=== PATIENT | male | born 1930 | race Caucasian/White ===

== ENCOUNTER 2016-09-30 14:47 | Inpatient (IN) | payer OTHER ==
[~2016-09-30] VITALS: Ht 165.1 cm; Wt 81.0 kg
[~2016-09-30 14:47] MED LIST: ALLO100T PO; GLIP-95 PO; GLIP5TAB13 PO; METF1000 PO; OCUVITE PO; PYRI60TA9 PO; SMV40T PO; SYN112 PO
[2016-09-30] MEDS ORDERED: SOD CHLORIDE 0.9% 1,000 ML IV STA (15:53)
--- NOTE | 2016-09-30 15:58 | ERD ---
ER Documentation Chief Complaint Date/Time DATE: 09/30/16 TIME: 15:40 Chief Complaint syncope while in bathroom. no neuro def. question loc. no trauma HPI 86-year-old male with history of diabetes mellitus type 2, metabolic syndrome, hyperlipidemia, hypothyroidism, myasthenia gravis, nephrolithiasis, chronic constipation and chronic back pain and sciatica presents to the ED via rescue ambulance for evaluation of near syncope. He was in his usual state of health until yesterday evening when he began to have frequent, soft stools throughout the night with a queasy feeling but no abdominal pain, nausea or vomiting. Earlier this afternoon he had an episode of explosive diarrhea which recurred again while sitting on the commode became lightheaded. He called out to his who witnessed a near syncopal episode which lasted several seconds and returned to baseline. became concerned and called 911. There was no seizure activity. No urinary or fecal incontinence. He denies chest pain or palpitations. No headache, neck pain or visual changes. Generalized weakness but no Focal weakness or numbness. Denies leg pain or swelling. No fevers or chills. Currently back to baseline. His dinner last night was a pastrami sandwich at [facility] in [place]. His had the same meal but did not become ill. ROS All systems reviewed and are negative except as per history of present illness. Medications Home Meds Reported Medications Pyridostigmine Nimitz* (Mestinon*) 60 Mg Tablet, 120 MG PO BEFORE LUNCH, TAB 10/01/16 Pyridostigmine Nimitz* (Pyridostigmine Nimitz*) 60 Mg Tablet, 60 MG PO QHS, TAB 10/01/16 Pyridostigmine Nimitz* (Pyridostigmine Nimitz*) 60 Mg Tablet, 120 MG PO BEFORE LUNCH, TAB 10/01/16 Beta-Carotene (Beta Carotene) 25,000 Unit Capsule, 89809 UNIT PO DAILY, CAP 10/01/16 Atorvastatin* (Atorvastatin*) 40 Mg Tablet, 20 MG PO DAILY, #30 TAB 10/01/16 Vit C/E/Zn/Coppr/Lutein/Zeaxan (Preservision Areds 2 Softgel) 1 Each Capsule, 1 EACH PO BID, CAP 10/01/16 Lutein-Zeaxanthin (Lutein-Zeaxanthin) 25-5 Mg Softgel Capsule, 1 CAP PO DAILY, CAP 09/30/16 Atorvastatin Calcium* (Atorvastatin Calcium*) 20 Mg Tablet, 20 MG PO QHS, #30 TAB 09/30/16 Tamsulosin Hcl* (Tamsulosin Hcl*) 0.4 Mg Cap.er.24h, 0.4 MG PO HS, CAP 09/30/16 Levothyroxine Sodium* (Levothyroxine Sodium*) 100 Mcg Tablet, 100 MCG PO BEFORE BREAKFAST, #30 TAB 09/30/16 Allopurinol* (Allopurinol*) 100 Mg Tablet, 100 MG PO DAILY 01/03/12 Glipizide* (Glipizide*) 10 Mg Tablet, 10 MG PO BID 01/03/12 Metformin Hcl* (Metformin Hcl*) 1,000 Mg Tablet, 1000 MG PO BID 01/03/12 Discontinued Reported Medications Pyridostigmine Nimitz* (Pyridostigmine Nimitz*) 60 Mg Tablet, 60 MG PO TID, TAB 10/01/16 Vit C/E/Zn/Coppr/Lutein/Zeaxan (Preservision Areds 2 Softgel) 1 Each Capsule, 2 CAP PO DAILY, CAP 09/30/16 Beta Carotene (A) W-C & E/Min* (Ocuvite*) 1 Tab Tab, 1 TAB PO DAILY 01/03/12 Glipizide* (Glipizide*) 5 Mg Tablet, 5 MG PO Q PM 01/03/12 Levothyroxine Sodium* (Levothyroxine Sodium*) 112 Mcg Tablet, 112 MCG PO DAILY 01/03/12 Pyridostigmine Nimitz* (Pyridostigmine Nimitz*) 60 Mg Tablet, 60 MG PO HS 01/03/12 Pyridostigmine Nimitz* (Pyridostigmine Nimitz*) 60 Mg Tablet, 120 MG PO AT NOON 01/03/12 Pyridostigmine Nimitz* (Pyridostigmine Nimitz*) 60 Mg Tablet, 120 MG PO AM 01/03/12 Simvastatin (Simvastatin) 40 Mg Tablet, 40 MG PO DAILY 01/03/12 Allergies Allergies: Coded Allergies: codeine (Verified Allergy, Unknown, 09/30/16) morphine (Verified Allergy, Unknown, DIZZINESS, NAUSEA, 09/30/16) PMhx/Soc Reviewed in chart. As per HPI History of Surgery: Yes (appendectomy,right rotator cuff sx,lumbar spinal fusion) Anesthesia Reaction: No Hx Neurological Disorder: Yes (myasthenia gravis) Hx Respiratory Disorders: No Hx Cardiac Disorders: Yes Hx Psychiatric Problems: No Hx Miscellaneous Medical Probl: Yes (DM) Hx Alcohol Use: No Hx Substance Use: No Hx Tobacco Use: No Smoking Status: Never smoker FmHx Mother: Hodgkin's lymphoma. No family history of sudden cardiac or heart disease Physical Exam Vitals Vital Signs Date Time Temp Pulse Resp B/P Pulse Ox O2 Delivery O2 Flow Rate FiO2 09/30/16 18:30 97.9 78 20 135/70 98 Room Air 09/30/16 17:20 97.9 09/30/16 16:58 98.6 79 20 122/65 97 Room Air 09/30/16 14:50 98.5 85 20 134/63 98 09/30/16 14:50 78 20 145/88 97 Room Air Physical Exam Const: Alert, no acute distress. Head: Atraumatic Eyes: Slight ptosis bilaterally. Pupils equal and to light, extraocular movements are intact Normal Conjunctiva ENT: Normal External Ears, Nose and Mouth. Neck: Full range of motion no JVD Resp: Breast sounds equal bilaterally and Clear to auscultation bilaterally Cardio: Regular rate and rhythm, no murmurs Abd: Soft, non tender, non distended. Normal bowel sounds. No masses or normal pulsations. No rebound or guarding. Skin: No petechiae or rashes Back: No midline or flank tenderness Ext: No cyanosis, or edema. No calf swelling or tenderness. Neur: Awake and alert. Cranial nerves II through XII grossly intact. Motor and sensory equal bilaterally. No focal deficit observed. Psych: Normal Mood and Affect Result Diagram: 10/02/16 0647 10/02/16 0647 Results 24 hrs Laboratory Tests Test 09/30/16 15:58 09/30/16 18:30 White Blood Count 17.310^3/ul Red Blood Count 4.4310^6/ul Hemoglobin 12.4g/dl Hematocrit 39.3% Mean Corpuscular Volume 88.7fl Mean Corpuscular Hemoglobin 28.0pg Mean Corpuscular Hemoglobin Concent 31.6g/dl Red Cell Distribution Width 14.8% Platelet Count 82355^3/UL Mean Platelet Volume 10.3fl Neutrophils % 86.6% Lymphocytes % 6.0% Monocytes % 5.7% Eosinophils % 0.6% Basophils % 0.3% Nucleated Red Blood Cells % 0.0/100WBC Neutrophils # 15.010^3/ul Lymphocytes # 1.010^3/ul Monocytes # 1.010^3/ul Eosinophils # 0.110^3/ul Basophils # 0.110^3/ul Nucleated Red Blood Cells # 0.010^3/ul Sodium Level 142mmol/L Potassium Level 4.1mmol/L Chloride Level 108mmol/L Carbon Dioxide Level 22mmol/L Anion Gap 16 Blood Urea Nitrogen 21mg/dl Creatinine 0.88mg/dl Glucose Level 228mg/dl Calcium Level 9.1mg/dl Total Bilirubin 0.5mg/dl Direct Bilirubin 0.00mg/dl Indirect Bilirubin 0.5mg/dl Aspartate Amino Transf (AST/SGOT) 27IU/L Alanine Aminotransferase (ALT/SGPT) 32IU/L Alkaline Phosphatase 70IU/L Troponin I < 0.012ng/ml Total Protein 7.3g/dl Albumin 4.0g/dl Globulin 3.30g/dl Albumin/Globulin Ratio 1.21 Thyroid Stimulating Hormone (TSH) 0.630MIU/L Urine Color LT. YELLOW Urine Clarity CLEAR Urine pH 5.0 Urine Specific [place] 1.025 Urine Ketones 15 Urine Nitrite NEGATIVE Urine Bilirubin NEGATIVE Urine Urobilinogen 0.2 E.U./dL Urine Leukocyte Esterase NEGATIVE Urine Hemoglobin NEGATIVE Urine Glucose 0.1%% Urine Total Protein NEGATIVE Current Medications Medications (Trade) Dose Ordered Sig/Pancho Route PRN Reason Start Time Stop Time Status Last Admin Dose Admin Sodium Chloride (NS) 1,000 ml @ 1,000 mls/hr Q1H STAT IV 09/30/16 15:53 09/30/16 16:52 DC 09/30/16 16:03 EKG: Time: 15:59. Sinus rhythm. Ventricular rate 74, normal CT and QRS intervals. No acute ST segment elevation or depression. No axis deviation or ectopy. EP Impression: Normal EKG Procedures/MDM DOCUMENTS REVIEWED: ED nurse, prior ED, prior admission 01/03/2012 history of physical, progress notes a discharge summary REEXAMINATION/REEVALUATION: Time: 18:00. Patient had an episode of shaking chills earlier but now feels better. Abdomen is soft nontender. [employer]KIN-year-old male with history of diabetes mellitus type 2, metabolic syndrome, hyperlipidemia, hypothyroidism, myasthenia gravis, nephrolithiasis, chronic constipation and chronic back pain and sciatica presents to the ED via rescue ambulance for evaluation of near syncope. Presentation consistent with vasovagal episode although pulmonary embolism, hypoglycemia and cardiac dysrhythmia are also considered. No seizure. No head injury, focal deficit headache or indication for neuroimaging. Patient with diarrhea likely secondary to food borne illness although viral/bacterial etiology are considered. Abdominal exam is benign without rebound, guarding or other signs of peritonitis. Moderate dehydration and prerenal azotemia improved with normal saline 1 L. Diabetic hyperglycemia without evidence of DKA. Leukocytosis possibly due to de-margination. Chronic lower back pain without neurologic symptoms other signs of an acute process including but not limited to cauda equina or spinal epidural abscess. Patient be admitted to Med/Surg for intravenous hydration, further evaluation and management. Counseled patient and family regarding diagnostic workup, diagnosis and need for followup. Understands to return to ED if symptoms recur, worsen or any other concerns. Departure Diagnosis: Primary Impression: Near syncope Additional Impressions: Dehydration Diarrhea Diarrhea type: unspecified type Qualified Code: R19.7 - Diarrhea, unspecified type Myasthenia gravis Leukocytosis Leukocytosis type: unspecified Qualified Code: D72.829 - Leukocytosis, unspecified type Weakness Condition: Serious NORTH OCONNOR MD Sep 30, 2016 15:58
[2016-09-30 16:10] LABS: ADD SCAN DIFF NO
[2016-09-30 16:14] LABS: BASOPHIL # 0.1 10^3/ul (0.0-0.1); BASOPHILS % 0.3 % (0.0-2.0); EOSINOPHILS # 0.1 10^3/ul (0.0-0.5); EOSINOPHILS % 0.6 % (0.0-7.0); HEMATOCRIT 39.3 % (42.0-52.0); HEMOGLOBIN 12.4 g/dl (14.0-18.0); MEAN CORPUSCULAR HGB CONC 31.6 g/dl (32.0-37.0); MEAN CORPUSCULAR VOLUME 88.7 fl (82.0-101.0); MEAN PLATELET VOLUME 10.3 fl (7.4-10.4); MONOCYTES % 5.7 % (0.0-11.0); NEUTROPHILS % 86.6 % (39.0-77.0); PLATELET COUNT 312 10^3/UL (140-415); RED BLOOD COUNT 4.43 10^6/ul (4.70-6.10); RED CELL DISTRIBUTION WIDTH 14.8 % (11.5-14.5); WHITE BLOOD COUNT 17.3 10^3/ul (4.8-10.8)
[2016-09-30] MEDS ORDERED: LEVO100T87 PO (16:22)
[2016-09-30 16:23] LABS: CHLORIDE 108 mmol/L (97-110)
[2016-09-30] MEDS ORDERED: TAMS0.4C2 PO (16:23)
[2016-09-30] MEDS ORDERED: ATOR20TA38 PO (16:23)
[2016-09-30 16:24] LABS: POTASSIUM 4.1 mmol/L (3.5-5.1); SODIUM 142 mmol/L (135-144)
[2016-09-30] MEDS ORDERED: LUTE1CAP4 PO (16:24)
[2016-09-30 16:26] LABS: ALANINE AMINOTRANSFERASE 32 IU/L (13-69); ALBUMIN/GLOBULIN RATIO 1.21; ALKALINE PHOSPHATASE 70 IU/L (42-121); ANION GAP 16 (8-16); ASPARTATE AMINO TRANSFERASE 27 IU/L (15-46); BILIRUBIN,INDIRECT 0.5 mg/dl (0-1.1); BILIRUBIN,TOTAL 0.5 mg/dl (0.2-1.3); BLOOD UREA NITROGEN 21 mg/dl (7-20); CARBON DIOXIDE 22 mmol/L (21-31); CREATININE 0.88 mg/dl (0.61-1.24); TOTAL PROTEIN 7.3 g/dl (6.1-8.1)
[2016-09-30] MEDS ORDERED: VIT1CAPS42 PO (16:26)
[2016-09-30 16:27] LABS: CALCIUM 9.1 mg/dl (8.4-10.2); GLUCOSE 228 mg/dl (70-220)
[2016-09-30 16:38] LABS: TROPONIN-I < 0.012 ng/ml (0.00-0.12)
[2016-09-30 19:05] LABS: ADD UMIC NO; URINE BILIRUBIN (Dip) NEGATIVE (NEGATIVE); URINE BLOOD (Dip) NEGATIVE (NEGATIVE); URINE COLOR LT. YELLOW (YELLOW); URINE KETONES (Dip) 15 (NEGATIVE); URINE LEUKOCYTE ESTERASE (Dip) NEGATIVE (NEGATIVE); URINE NITRITE (Dip) NEGATIVE (NEGATIVE); URINE TOTAL PROTEIN (Dip) NEGATIVE (NEGATIVE); URINE UROBILINOGEN (Dip) 0.2 E.U./dL (0.1-1.0)
[2016-09-30] MEDS ORDERED: ONDANSETRON 4 MG INJ IV PRN (19:30)
[2016-09-30] MEDS ORDERED: ACETAMINOPHEN 325 MG TAB PO PRN (19:30)
--- NOTE | 2016-09-30 20:49 | HP ---
Date/Time of Note Date/Time of Note DATE: 09/30/16 TIME: 20:48 Assessment/Plan VTE Prophylaxis VTE Prophylaxis Intervention: ambulation Assessment/Plan Assessment/Plan 1) Syncope - I suspect Vasovagal Event, but Cardiac Event is possible, Seizure less likely. !st Troponin and EKG: NEGATIVE - Admit to Telemetry - Serial Cardiac Enzymes - Echocardiogram - CONSULT: Cardiology - Dr. Griffin 2) Leukocytosis - WBCs = 17.3 - I suspect Demargination from the stress of the Syncopal Event. No evidence of infection - CBC in AM 3) Nocturia, BPH suspected 4) DM Type 2 - Hold Home Oral Meds - Accu Check AC/HS - Mild Sliding Scale - Constant Carb Diet 5) Chronic Back Pain - Patient requests Gel Foam Mattress if he has to stay longer than 1 over night 6) Myasthenia Gravis HPI/ROS Admit Date/Time Admit Date/Time 09/30/16 1912 Hx of Present Illness Patient present with an episode of passing out for less than a minute while on the commode. Patient states he gets up every 1 to 2 hours at to urinate because of his enlarged prostate. He had severe acid reflux last night and took Nexium. His sugars were "OK". He was still awake at 0230, but he made himself go to sleep. At 0630, he had a small, loose BM, had to change his shorts as it " leaked out". At 11 am, his blood sugar was 134 so he took his morning medications. At 1 pm, he had 2 eggs and toast. He felt good, watching TV while sitting down. He then started to "feel weird" like his blood sugar was low only more severe. He headed towards the restroom because he did not feel well, but didn't make it. He had a large, loose BM in his shorts. He sat on the commode a few minutes feeling hot in the head and dizzy. Symptoms worsened and he began sweating. He denises having tunnel vision or seeing the room spin. He "fell over , passed out, hit wall" per his . He thinks he remembers the whole thing and that he was not out for very long. His feels that he was out less than a minute. She called 911. His sugar was 212 when the checked it and his BP was 90/something. He states that when he arrived at our ER, his sugar was 180 and BP was 120/52 Looking back, he has had 3 or 4 other episodes of passing out in his lifetime, but the last time was 2 years ago. One early episode occurred years ago when he was going fishing with his buddies. He had a long drive and met them for breakfast, a "big breakfast". Then, they had to walk up a hill to get to the fishing spot. [place] [address] hill, he fainted/passed out. When he cam to, he waited a bit and then got up and went fishing. Two years ago, he walked out of the den at home and got dizzy. He passed out on the bed. He was taken to [facility]. He did not have a heart attack, but he was diagnosed with Diabetes. He does not drive. ROS General: Admits: Denies: Fever, Chills, Poor Appetite, Generalized Body Aches Eyes: Admits: Denies: Blurry Vision, Double Vision HENT: Admits: Denies: Ear Pain/Pressure, Runny/Stuffy Nose, Sore Throat Cardiovascular: Admits: Leg Swelling - "they are always a little swollen Denies: Chest Pain, Palpitations Pulmonary: Admits: Denies: Cough, Wheeze, Shortness of Breath Gastrointestinal: Admits: Denies: Abdominal Pain, Nausea, Vomiting, Diarrhea, Blood in Stool, Black-Colored Stool Urogenital: Admits: Denies: Burning with Urination, Urinary Frequency, Blood in Urine Musculoskeletal: Admits: Chronic back and joint pain from arthritis - sleeps on a Gel Foam Bed at home. Would like one while he is here or he will not be able to sleep because of the pain the other beds cause. Denies: Joint Swelling, Muscle Pain Neurological: Admits: One episode of shaking on his right side while in the ED. He was evaluated by the ER Physician and he checked out fine and the symptom went away on its own. Dizziness - see HPI Denies: Headache, , Numbness, Tingling, Shooting Pains Integumentary: Admits: Denies: Rash, Itch PMH/Family/Social Past Medical History Myasthenia Gravis; DM Type 2; BPH; Heartburn; Metabolic Syndrome; Hyperlipidemia ; Hypothyroidism; Myasthenia Gravis; Nephrolithiasis; Chronic Constipation; Chronic Back Pain; Sciatica; Gout Past Surgical History Appendectomy; Right Rotator Cuff Surgery; Lumbar Spinal Fusion Family History Significant Family History: cancer (Mother: Hodgkin's lymphoma.), other ( No family history of sudden cardiac or heart disease) Social History Alcohol Use: none Smoking Status: Never smoker Drug Use: none Exam/Review of Systems Vital Signs Vitals Vital Signs Date Time Temp Pulse Resp B/P Pulse Ox O2 Delivery O2 Flow Rate FiO2 09/30/16 20:10 74 127/60 73 136/62 151/67 09/30/16 18:30 97.9 20 98 Room Air Exam Exam General: Elderly male, accompanied by his , alert and oriented, in no acute distress Eyes: Sclera White, EOMI HENT: Normocephalic/Atraumatic, External Ears/Nose Normal, Moist Mucus Membranes Neck: Supple, Trachea Midline Cardiovascular: Normal Rate, Regular Rhythm, Normal S1 and S2, No Murmur, No Extra Sounds. Radial pulse +2/4. No pedal Edema. Pulmonary: Clear to Auscultation Bilaterally, Normal Respiratory Effort, No Rales, Rhonchi or Wheezes Gastrointestinal: Normoactive Bowel Sounds, Soft, Non-Tender, Mild, Gassy Distention, No Hepatosplenomegaly Appreciated, No Pulsatile Masses Urogenital: Deferred Musculoskeletal: Normal Muscle Bulk and Tone Neurological: CN II - XII Grossly Intact, Non-Focal, Speech Normal Integumentary: Normal Moisture and Temperature, Good Turgor, No Jaundice, No Rash Lymphatic: No Cervical Lymphadenopathy Psychiatric: Appropriate Mood and Affect, Good Eye Contact Labs Result Diagram: 09/30/16 1558 09/30/16 1558 Medications Medications Home Meds Reported Medications Vit C/E/Zn/Coppr/Lutein/Zeaxan (Preservision Areds 2 Softgel) 1 Each Capsule, 2 CAP PO DAILY, CAP 09/30/16 Lutein-Zeaxanthin (Lutein-Zeaxanthin) 25-5 Mg Softgel Capsule, 1 CAP PO DAILY, CAP 09/30/16 Atorvastatin Calcium* (Atorvastatin Calcium*) 20 Mg Tablet, 20 MG PO QHS, #30 TAB 09/30/16 Tamsulosin Hcl* (Tamsulosin Hcl*) 0.4 Mg Cap.er.24h, 0.4 MG PO HS, CAP 09/30/16 Levothyroxine Sodium* (Levothyroxine Sodium*) 100 Mcg Tablet, 100 MCG PO BEFORE BREAKFAST, #30 TAB 09/30/16 Beta Carotene (A) W-C & E/Min* (Ocuvite*) 1 Tab Tab, 1 TAB PO DAILY 01/03/12 Allopurinol* (Allopurinol*) 100 Mg Tablet, 100 MG PO DAILY 01/03/12 Glipizide* (Glipizide*) 10 Mg Tablet, 10 MG PO BID 01/03/12 Metformin Hcl* (Metformin Hcl*) 1,000 Mg Tablet, 1000 MG PO BID 01/03/12 Discontinued Reported Medications Glipizide* (Glipizide*) 5 Mg Tablet, 5 MG PO Q PM 01/03/12 Levothyroxine Sodium* (Levothyroxine Sodium*) 112 Mcg Tablet, 112 MCG PO DAILY 01/03/12 Pyridostigmine Phelps* (Pyridostigmine Phelps*) 60 Mg Tablet, 60 MG PO HS 01/03/12 Pyridostigmine Phelps* (Pyridostigmine Phelps*) 60 Mg Tablet, 120 MG PO AT NOON 01/03/12 Pyridostigmine Phelps* (Pyridostigmine Phelps*) 60 Mg Tablet, 120 MG PO AM 01/03/12 Simvastatin (Simvastatin) 40 Mg Tablet, 40 MG PO DAILY 01/03/12 Current Medications Medications (Trade) Dose Ordered Sig/Pancho Route PRN Reason Start Time Stop Time Status Last Admin Dose Admin Sodium Chloride (NS) 1,000 ml @ 1,000 mls/hr Q1H STAT IV 09/30/16 15:53 09/30/16 16:52 DC 09/30/16 16:03 Ondansetron HCl (Zofran Inj) 4 mg BRIDGE ORDER PRN IV NAUSEA AND/OR VOMITING 09/30/16 19:30 10/01/16 19:29 Acetaminophen (Tylenol Tab) 650 mg ER BRIDGE PRN PO MILD PAIN/FEVER 09/30/16 19:30 10/01/16 19:29 Procedures Procedures Laboratory Tests Test 09/30/16 15:58 09/30/16 18:30 09/30/16 19:38 White Blood Count 17.310^3/ul Red Blood Count 4.4310^6/ul Hemoglobin 12.4g/dl Hematocrit 39.3% Mean Corpuscular Volume 88.7fl Mean Corpuscular Hemoglobin 28.0pg Mean Corpuscular Hemoglobin Concent 31.6g/dl Red Cell Distribution Width 14.8% Platelet Count 31842^3/UL Mean Platelet Volume 10.3fl Neutrophils % 86.6% Lymphocytes % 6.0% Monocytes % 5.7% Eosinophils % 0.6% Basophils % 0.3% Nucleated Red Blood Cells % 0.0/100WBC Neutrophils # 15.010^3/ul Lymphocytes # 1.010^3/ul Monocytes # 1.010^3/ul Eosinophils # 0.110^3/ul Basophils # 0.110^3/ul Nucleated Red Blood Cells # 0.010^3/ul Sodium Level 142mmol/L Potassium Level 4.1mmol/L Chloride Level 108mmol/L Carbon Dioxide Level 22mmol/L Anion Gap 16 Blood Urea Nitrogen 21mg/dl Creatinine 0.88mg/dl Glucose Level 228mg/dl Calcium Level 9.1mg/dl Total Bilirubin 0.5mg/dl Direct Bilirubin 0.00mg/dl Indirect Bilirubin 0.5mg/dl Aspartate Amino Transf (AST/SGOT) 27IU/L Alanine Aminotransferase (ALT/SGPT) 32IU/L Alkaline Phosphatase 70IU/L Troponin I < 0.012ng/ml Total Protein 7.3g/dl Albumin 4.0g/dl Globulin 3.30g/dl Albumin/Globulin Ratio 1.21 Thyroid Stimulating Hormone (TSH) 0.630MIU/L Urine Color LT. YELLOW Urine Clarity CLEAR Urine pH 5.0 Urine Specific [place] 1.025 Urine Ketones 15 Urine Nitrite NEGATIVE Urine Bilirubin NEGATIVE Urine Urobilinogen 0.2 E.U./dL Urine Leukocyte Esterase NEGATIVE Urine Hemoglobin NEGATIVE Urine Glucose 0.1%% Urine Total Protein NEGATIVE Bedside Glucose 167mg/dL EKG: Time: 15:59. Sinus rhythm. Ventricular rate 74, normal RI and QRS intervals. No acute ST segment elevation or depression. No axis deviation or ectopy. EP Impression: Normal EKG PORTABLE AP CHEST, 01/03/2012, 4:07 A.M. No comparison available. INDICATION: Chest pain. FINDINGS: The lungs are clear. The cardiomediastinal silhouette is normal. The surrounding soft tissues and osseous structures are unremarkable. No acute cardiopulmonary process is identified. CONCLUSION: UNREMARKABLE CHEST X-RAY. BLAYNE ALCAZAR DO Sep 30, 2016 20:49 BLAYNE ALCAZAR DO Sep 30, 2016 20:49
[2016-09-30] MEDS ORDERED: NITROGLYCERIN (SL) 0.4 MG TAB SL PRN ×2 (21:00→22:00)
[2016-09-30] MEDS: INSULIN ASPART [NOVOLOG] 3 ML PEN SC SCH (21:00)
[2016-09-30] MEDS ORDERED: NACL 0.9% 3 ML SYG IV SCH ×2 (21:00→22:00)
[2016-09-30] MEDS ORDERED: METOCLOPRAMIDE 10 MG INJ IV PRN ×2 (21:00→22:00)
[2016-09-30] MEDS ORDERED: GLUCOSE GEL 15 GRAM TUBE BUCCAL PRN ×2 (21:30→22:00)
[2016-09-30] MEDS ORDERED: GLUCAGON 1 MG INJ IM PRN ×2 (21:30→22:00)
[2016-09-30] MEDS ORDERED: DEXTROSE 50% 50 ML SYRINGE IV PRN ×4 (21:30→22:00)
[2016-09-30] MEDS ORDERED: GLUCOSE GEL 15 GRAM TUBE PO PRN ×4 (21:30→22:00)
[2016-09-30 22:03] VITALS: TEMP 97.9
[2016-09-30 22:20] LABS: CREATINE KINASE 92 IU/L (23-200)
[2016-09-30 22:28] VITALS: PULSE 75
[2016-09-30 22:31] LABS: CK-MB 3.88 ng/ml (0.0-2.4)
[2016-09-30 22:33] LABS: TROPONIN-I < 0.012 ng/ml (0.00-0.12)
[2016-10-01] VITALS (10 sets, daily range): BP systolic 119–170; BP diastolic 58–81; PULSE 66–85; RESP 17–20; Ht 165.1 cm; Wt 81.0 kg
[2016-10-01] MEDS: ACCUCHECK AT 2AM (Patients on SS coverage) XX SCH (02:00)
[2016-10-01 03:32] LABS: ADD SCAN DIFF NO
[2016-10-01 03:46] LABS: BASOPHILS % 0.4 % (0.0-2.0); EOSINOPHILS # 0.2 10^3/ul (0.0-0.5); EOSINOPHILS % 2.4 % (0.0-7.0); HEMOGLOBIN 10.2 g/dl (14.0-18.0); LYMPHOCYTES # 1.8 10^3/ul (0.8-2.9); LYMPHOCYTES % 20.2 % (15.0-51.0); MEAN CORPUSCULAR HEMOGLOBIN 27.3 pg (29.0-33.0); MEAN CORPUSCULAR HGB CONC 30.9 g/dl (32.0-37.0); MEAN CORPUSCULAR VOLUME 88.5 fl (82.0-101.0); MEAN PLATELET VOLUME 10.7 fl (7.4-10.4); MONOCYTE # 0.7 10^3/ul (0.3-0.9); MONOCYTES % 7.4 % (0.0-11.0); NEUTROPHIL # 6.1 10^3/ul (1.6-7.5); NEUTROPHILS % 69.2 % (39.0-77.0); PLATELET COUNT 272 10^3/UL (140-415); RED BLOOD COUNT 3.73 10^6/ul (4.70-6.10); RED CELL DISTRIBUTION WIDTH 14.8 % (11.5-14.5); WHITE BLOOD COUNT 8.9 10^3/ul (4.8-10.8)
[2016-10-01 03:51] LABS: MAGNESIUM 1.5 mg/dl (1.7-2.5)
[2016-10-01 03:53] LABS: CREATINE KINASE 100 IU/L (23-200)
[2016-10-01 04:09] LABS: CK-MB 3.68 ng/ml (0.0-2.4); TROPONIN-I < 0.012 ng/ml (0.00-0.12)
[2016-10-01 04:57] LABS: ALBUMIN 3.4 g/dl (3.3-4.9)
[2016-10-01 05:00] LABS: BILIRUBIN,INDIRECT 0.4 mg/dl (0-1.1); BILIRUBIN,TOTAL 0.4 mg/dl (0.2-1.3); TOTAL PROTEIN 6.2 g/dl (6.1-8.1)
[2016-10-01] MEDS: LEVOTHYROXINE 100 MCG TAB PO SCH (06:53)
[2016-10-01] MEDS: INSULIN ASPART [NOVOLOG] 3 ML PEN SC SCH ×8 (08:00→21:00)
[2016-10-01] MEDS: [UNRECOGNIZED DRUG - MIXTURE] XX SCH (08:20)
[2016-10-01] MEDS: ALLOPURINOL 100 MG TAB PO SCH (08:25)
[2016-10-01] MEDS: ASPIRIN 81 MG TAB PO SCH (08:25)
[2016-10-01] MEDS ORDERED: MAGNESIUM SULFATE 2 GM/50 ML 50 ML IVPB ONE (08:30)
--- NOTE | 2016-10-01 09:58 | PN ---
Date/Time of Note Date/Time of Note DATE: 10/01/16 TIME: 09:47 Assessment/Plan VTE Prophylaxis VTE Prophylaxis Intervention: SCD's Lines/Catheters IV Catheter Type (from Nrsg): Saline Lock Assessment/Plan Assessment/Plan 86 yo M s/p transient syncopal episode on the toliet 1. Transient syncope likely Vasovagal 2. DM2 Aic 7.9: improved in-house control 3. HTN 4. Dylipidemia 5. Elevated CK mB 6. Hypomagnesemia 7. Hypothyroidism 8. Chronic gout 9. BPH PLAN: * Continue workup to r/o more sinister cause, ACS ruled out / UA not suggestive of UTI * Will also get Cardio consult in view of elevated CKMB / f/u echo / Carotid USS * Continue home DM and HTN regimen and titrate as needed / replace lytes as indicated * Patient has had a hx of chronic constipation / f/u KUB * add low dose lisinopril and ASA to regimen * Continue supportive care PROPHYLAXIS: pepcid / SCDs Subjective 24 Hr Interval Summary Free Text/Dictation Patient admitted for transient syncope on the toilet Feels better now Exam/Review of Systems Vital Signs Vitals Vital Signs Date Time Temp Pulse Resp B/P Pulse Ox O2 Delivery O2 Flow Rate FiO2 10/01/16 08:00 66 10/01/16 07:35 97.7 18 139/64 96 09/30/16 22:03 Room Air Intake and Output 09/30/16 09/30/16 10/01/16 15:00 23:00 07:00 Intake Total 400 ml Balance 400 ml Exam GENERAL: Patient is alert, oriented x 3, in no apparent distress; does not appear acutely or chronically ill. Patient is able to sit up unassisted.Patient makes good eye contact, is conversant, interactive, coherent. Patient appears calm and comfortable and is able to follow commands. HEENT: Oropharynx is clear. There is no carotid bruit, no masses. Patient's pupils are equal, round and reactive to light bilaterally. Extraocular motions are intact. There is no scleral icterus. There is no facial asymmetry. NECK: Supple. LUNGS: Clear to auscultation bilaterally with good air entry. No Wheezes or crackles. HEART: S1, S2. No murmur, gallops or rubs. Regular rate and rhythm. ABDOMEN: Soft, nontender. Normoactive bowel sounds. There are no stigmata of chronic liver disease. BACK: no costovertebral angle tenderness. GENITOURINARY: Deferred. EXTREMITIES: No edema. There is no cyanosis, clubbing. There are 2+ pulses bilaterally distally. NEUROLOGIC: The patient has no lateralizing signs. Cranial nerves II-XII are intact. SKIN: Otherwise, unremarkable. Results Result Diagram: 10/01/16 0312 09/30/16 1558 Results 24 hrs Laboratory Tests Test 09/30/16 15:58 09/30/16 18:30 09/30/16 19:38 09/30/16 22:00 White Blood Count 17.3 H Red Blood Count 4.43 L Hemoglobin 12.4 L Hematocrit 39.3 L Mean Corpuscular Volume 88.7 Mean Corpuscular Hemoglobin 28.0 L Mean Corpuscular Hemoglobin Concent 31.6 L Red Cell Distribution Width 14.8 H Platelet Count 312 Mean Platelet Volume 10.3 Neutrophils % 86.6 H Lymphocytes % 6.0 L Monocytes % 5.7 Eosinophils % 0.6 Basophils % 0.3 Nucleated Red Blood Cells % 0.0 Neutrophils # 15.0 H Lymphocytes # 1.0 Monocytes # 1.0 H Eosinophils # 0.1 Basophils # 0.1 Nucleated Red Blood Cells # 0.0 Sodium Level 142 Potassium Level 4.1 Chloride Level 108 Carbon Dioxide Level 22 Anion Gap 16 Blood Urea Nitrogen 21 H Creatinine 0.88 Glucose Level 228 H Calcium Level 9.1 Total Bilirubin 0.5 Direct Bilirubin 0.00 Indirect Bilirubin 0.5 Aspartate Amino Transf (AST/SGOT) 27 Alanine Aminotransferase (ALT/SGPT) 32 Alkaline Phosphatase 70 Troponin I < 0.012 < 0.012 Total Protein 7.3 Albumin 4.0 Globulin 3.30 H Albumin/Globulin Ratio 1.21 Thyroid Stimulating Hormone (TSH) 0.630 Urine Color LT. YELLOW Urine Clarity CLEAR Urine pH 5.0 Urine Specific [place] 1.025 Urine Ketones 15 Urine Nitrite NEGATIVE Urine Bilirubin NEGATIVE Urine Urobilinogen 0.2 E.U./dL Urine Leukocyte Esterase NEGATIVE Urine Hemoglobin NEGATIVE Urine Glucose 0.1% H Urine Total Protein NEGATIVE Bedside Glucose 167 Creatine Kinase 92 Creatine Kinase Index 4.2 Creatinine Kinase MB (Mass) 3.88 H Test 09/30/16 23:28 10/01/16 02:15 10/01/16 03:12 10/01/16 07:50 Bedside Glucose 143 172 131 White Blood Count 8.9 # Red Blood Count 3.73 L Hemoglobin 10.2 L Hematocrit 33.0 L Mean Corpuscular Volume 88.5 Mean Corpuscular Hemoglobin 27.3 L Mean Corpuscular Hemoglobin Concent 30.9 L Red Cell Distribution Width 14.8 H Platelet Count 272 Mean Platelet Volume 10.7 H Neutrophils % 69.2 Lymphocytes % 20.2 Monocytes % 7.4 Eosinophils % 2.4 Basophils % 0.4 Nucleated Red Blood Cells % 0.0 Neutrophils # 6.1 Lymphocytes # 1.8 Monocytes # 0.7 Eosinophils # 0.2 Basophils # 0.0 Nucleated Red Blood Cells # 0.0 Hemoglobin A1c 7.8 H Magnesium Level 1.5 L Total Bilirubin 0.4 Direct Bilirubin 0.00 Indirect Bilirubin 0.4 Aspartate Amino Transf (AST/SGOT) 26 Alanine Aminotransferase (ALT/SGPT) 22 Alkaline Phosphatase 54 Creatine Kinase 100 Creatine Kinase Index 3.7 Creatinine Kinase MB (Mass) 3.68 H Troponin I < 0.012 Total Protein 6.2 # Albumin 3.4 Triglycerides Level 158 H Cholesterol Level 89 L LDL Cholesterol, Calculated 14 HDL Cholesterol 43 Cholesterol/HDL Ratio 2.0 Medications Medications Current Medications Metoclopramide HCl (Reglan) 10 mg Q6H PRN IV NAUSEA AND/OR VOMITING; Start 09/30 at 21:00 Aspirin (Aspirin) 81 mg DAILY PO Last administered on 10/01/16t 08:25; Admin Dose 81 MG; Start 10/01/16 at 09:00 Nitroglycerin (Nitroglycerin (Sl Tab) 0.4 Mg) 1 tab Q5M PRN SL CHEST PAIN; Start 09/30/16 at 21:00 Miscellaneous Information 1 ea NOTE XX ; Start 09/30/16 at 21:30 Glucose (Glutose) 15 gm Q15M PRN PO DECREASED GLUCOSE; Start 09/30/16 at 21:30 Glucose (Glutose) 22.5 gm Q15M PRN PO DECREASED GLUCOSE; Start 09/30/16 at 21:30 Dextrose (D50w Syringe) 25 ml Q15M PRN IV DECREASED GLUCOSE; Start 09/30/16 at 21:30 Dextrose (D50w Syringe) 50 ml Q15M PRN IV DECREASED GLUCOSE; Start 09/30/16 at 21:30 Glucagon (Glucagen) 1 mg Q15M PRN IM DECREASED GLUCOSE; Start 09/30/16 at 21:30 Glucose (Glutose) 15 gm Q15M PRN BUCCAL DECREASED GLUCOSE; Start 09/30/16 at 21: 30 Diagnostic Test (Pha) (Accu-Chek) 1 ea 02 XX ; Start 10/01/16 at 02:00 Allopurinol (Zyloprim) 100 mg DAILY PO Last administered on 10/01/16 08:25; Admin Dose 100 MG; Start 10/01/16 at 09:00 Atorvastatin Calcium (Lipitor) 20 mg QHS PO ; Start 10/01/16 at 21:00 Tamsulosin HCl 0.4 mg 0.4 mg HS PO ; Start 10/01/16 at 21:00 Magnesium Sulfate (Magnesium Sulfate 2 Gm/50 ml) 50 ml @ 25 mls/hr ONCE ONCE IVPB Last administered on 10/01/16 09:33; Admin Dose 25 MLS/HR; Start 10/01/16 at 08:30; Stop 10/01/16 at 10:29 GOPAL FOFANA Oct 01, 2016 09:57
[2016-10-01] MEDS ORDERED: glipiZIDE 10 MG TAB PO SCH (10:00)
[2016-10-01] MEDS ORDERED: PYRI60TA9 PO ×3 (11:23→12:31)
[2016-10-01] MEDS ORDERED: BETA2500 PO (11:23)
[2016-10-01] MEDS ORDERED: ATOR40TA68 PO (11:23)
[2016-10-01] MEDS ORDERED: VIT1CAPS42 PO (11:23)
[2016-10-01] MEDS ORDERED: BETA CAROTENE/VIT C/E/MIN TAB PO SCH (11:30)
[2016-10-01] MEDS: LISINOPRIL 10 MG TAB PO SCH (12:15)
[2016-10-01] MEDS ORDERED: BETA CAROTENE 25000 UNIT PO SCH (12:30)
[2016-10-01] MEDS ORDERED: PYRI60TA PO (12:31)
[2016-10-01] MEDS ORDERED: PYRIDOSTIGMINE 60 MG TAB PO SCH ×2 (13:00→21:00)
[2016-10-01] MEDS ORDERED: ZINC SULFATE 220 MG CAP PO SCH (13:30)
[2016-10-01] MEDS ORDERED: VITAMIN E 200 UNITS CAP PO SCH (13:30)
[2016-10-01] MEDS ORDERED: ASCORBIC ACID 250 MG TAB PO SCH (13:30)
--- NOTE | 2016-10-01 16:13 | RADRPT ---
Echocardiogram Report Patient Name: VIANNEY NOLAND Gender: Male Date: 1930 Study Date: 01-Oct-2016 Cigarette Examiner: CAR RDCZS Location: [id number] Ref. Physician: BLAYNE ALCAZAR Quality: Good Procedures: Transthoracic echocardiogram with complete 2D, M-Mode, and doppler examination. Indications: SYNCOPAL EPISODES. 2D/M Mode Doppler Measurement Value Normal Ranges Measurement Value Normal Ranges LVIDd 2D 4.4 3.5 - 5.6 cm AV Peak Kishore 1.1 m/sec LVIDs 2D 3.0 2.1 - 4.1 cm AV Peak PG 4.6 mmHg LVPWd 2D 1.0 0.6 - 1.1 cm LVOT Peak Kishore 1.0 m/sec IVSd 2D 1.0 0.6 - 1.1 cm LVOT Peak PG 4.2 mmHg AoR Diam 2D 2.7 2.0 - 3.7 cm MV E Peak Kishore 0.8 m/sec EDV 2D 87.4 cm3 MV A Peak Kishore 0.9 m/sec ESV 2D 25.9 cm3 MV E/A 0.9 MV Decel Time 170 msec MV Decel Jess[place] 5 MV E/A 0.9 Findings Left Ventricle: Lower limits of normal systolic function. Normal left ventricular cavity size. Normal left ventricular wall thickness. Ejection fraction is visually estimated at 5055 %. Tissue Doppler/Mitral Doppler indices are within normal limits. Right Ventricle: Normal right ventricular size. Normal right ventricular systolic function. Left Atrium: The left atrium is normal in size. Right Atrium: The right atrium is normal in size. Mitral Valve: Mild mitral leaflet calcification. Mild mitral annular calcification. Trace mitral regurgitation. Aortic Valve: Probable trileaflet aortic valve, although not all leaflets are visualized. Tricuspid Valve: Tricuspid valve not well visualized. There is trace tricuspid regurgitation. Pulmonic Valve: There is trace pulmonic regurgitation. Pericardium: Normal pericardium with no significant pericardial effusion. Aorta: Normal aortic root. IVC: Normal size and normal respiratory collapse consistent with normal right atrial pressure. Conclusions 1.Lower limits of normal systolic function. Normal left ventricular cavity size. Normal left ventricular wall thickness. Ejection fraction is visually estimated at 50-55 %. Tissue Doppler/Mitral Doppler indices are within normal limits. 2.Mild mitral leaflet calcification. Mild mitral annular calcification. Trace mitral regurgitation. 3.Tricuspid valve not well visualized. There is trace tricuspid regurgitation. 4.There is trace pulmonic regurgitation. Electronically Signed By: Rudy Griffin 01-Oct-2016 16:13:11 -0700 Patient Name: VIANNEY NOLAND Study Date: 01-Oct-2016 [id number]
[2016-10-01] MEDS: ACETAMINOPHEN 325 MG TAB PO PRN ×2 (16:37→23:38)
[2016-10-01] MEDS: PYRIDOSTIGMINE PO SCH (16:41)
--- NOTE | 2016-10-01 17:17 | CONS ---
DATE OF ADMISSION: 09/30/2016 DATE OF CONSULTATION: 10/01/2016 REASON FOR CONSULTATION: Syncope, assess for cardiac etiology, as well as lower extremity edema, assess for congestive heart failure. REQUESTING PHYSICIAN: Dr. Fofana from the hospitalist service. HISTORY OF PRESENT ILLNESS: The patient is an 86-year-old male with history of diabetes mellitus, hypertension, dyslipidemia, hypothyroidism, gout, BPH who presented status post syncopal episode. The patient states that he had a difficult time sleeping during the night due to what he describes as heartburn after having a late meal. The patient then states that during the day he also noticed low blood sugars and thinks he took all of his medications and thought he just took half of it. Thereafter, the patient noticed significant diaphoresis and tremulousness. The patient went to the bathroom, had a loose stool and then subsequently had a syncopal episode thereafter. The patient denied chest pain or shortness of breath. Upon arrival in the emergency department, temperature 98.5, blood pressure 145/ 88, pulse 85, respiratory rate 20, saturating 98%. The patient's labs revealed a white count of 17.3, hemoglobin 12.4, platelet count 312. Sodium of 142, potassium 4.1, creatinine 0.8, BUN 21. Troponin negative. UA negative. The patient underwent 12-lead EKG revealing normal sinus rhythm, rate of 74 with normal axis, normal intervals and nonspecific ST and T abnormalities and low voltage. The patient subsequently has now been admitted to the floor, has been monitored on telemetry since arrival on the floor and monitored in telemetry. The patient has no significant arrhythmias or pauses. The patient at this time denies chest pain, shortness of breath. PAST MEDICAL HISTORY: As above in HPI. MEDICATIONS CURRENTLY IN HOSPITAL: 1. Beta carotene. 2. Lipitor 20 mg at bedtime. 3. Flomax. 4. Metformin. 5. Zinc sulfate. 6. Vitamin C. 7. Vitamin E. 8. Zestril 10 mg daily. 9. Aspirin 81 mg daily. 10. Allopurinol 100 mg daily. 11. Synthroid 100 mcg daily. 12. Insulin sliding scale insulin. 13. Nitroglycerin p.r.n. 14. Reglan p.r.n. ALLERGIES: 1. CODEINE. 2. MORPHINE. SOCIAL HISTORY: No tobacco, EtOH or illicit drug use. FAMILY HISTORY: No history of sudden cardiac or early CAD. REVIEW OF SYSTEMS: As above in HPI. CONSTITUTIONAL: No fevers, chills. PULMONARY: No current shortness of breath. CARDIOVASCULAR: No current chest pain. GASTROINTESTINAL: No vomiting. GENITOURINARY: No hematuria. MUSCULOSKELETAL: Degenerative joint disease. PSYCHIATRIC: The patient denies depression. NEUROLOGIC: No documented history of CVA. PHYSICAL EXAMINATION VITAL SIGNS: Temperature of 97.9, blood pressure elevated at 170/81, pulse 69, respirations 17, saturating 99%. GENERAL: The patient is alert, awake, in no acute distress. NECK: JVP approximately 9 cm of water. CHEST: Fair air movement throughout. HEART: Regular rate and rhythm. Normal S1, S2, I/ systolic murmur, nondisplaced PMI. ABDOMEN: Positive bowel sounds, soft. EXTREMITIES: 2+ edema bilaterally, 1+ pulses bilaterally, posterior tibial. LABORATORY DATA: As above in HPI. Most recently from today, troponins negative times a total of 3. AST 26, ALT 22. Hemoglobin A1c of 7.8. White blood cell count 8.9, hemoglobin 10.2, platelet count 272. UA negative. IMAGING STUDIES: No imaging studies for my review at this time. ECG: As above in HPI. No further electrocardiograms for my review at this time. IMPRESSION: 1. Syncope, assess for cardiac etiology. Assess for cardiac arrhythmia. 2. Hypertension, labile. 3. History of dyslipidemia. 4. Lower extremity edema, assess for congestive heart failure. 5. Diabetes mellitus. 6. History of hypothyroidism. 7. Anemia. RECOMMENDATIONS: 1. At this time, would maintain the patient on telemetry monitoring to follow rhythm and rate closely and rule out possible rhythm causes to the patient's fall. 2. Continue the patient's current Lipitor with adjustment made according to a fasting lipid panel that should be checked. 3. Continue the patient's Zestril, with slight up titration to improve overall systolic blood pressure control following labile blood pressure closely. Use p.r.n. antihypertensives as necessary. 4. Check orthostatics to ensure that orthostasis is not contributing to the patient's fall. 5. Follow the patient's 2D echo to assess ejection fraction, wall motion, and rule out any major valve abnormalities. 6. Check lower extremity venous ultrasound to rule out any DVT of the lower extremities and consider initiation of gentle Lasix diuresis, following strict I 's and O's closely. Thank you for allowing me to take part in this patient's care of this patient. I will continue to follow very closely with you with further recommendations to be made as the patient progresses through his inpatient hospital clinical course. Dictated By: BERNIE CESAR/FELIZ Conf#: [id number] DID#: [id number] CC: GOPAL FOFANA MD;*EndCC* MTDD
[2016-10-01] MEDS ORDERED: SPECIAL NON-STANDARD MEDICATION PO SCH ×2 (17:35→21:00)
[2016-10-01] MEDS: metFORMIN 500 MG TAB PO SCH (17:47)
--- NOTE | 2016-10-01 18:03 | RADRPT ---
PROCEDURE: US Carotids. CLINICAL INDICATION: bruit , syncope TECHNIQUE: Multiple sonographic of the carotid bifurcation region and vertebral arteries were obta ined utilizing sena scale, duplex and color-flow imaging. The images were reviewed on a PACS worksta tion. COMPARISON: No prior studies are available for comparison. FINDINGS: Evaluation of the right carotid bifurcation region reveals no significant calcific atherosclerotic d isease. Evaluation of the left carotid bifurcation region reveals no significant calcific atherosclerotic di sease. There is antegrade flow within the vertebral arteries bilaterally. RIGHT CAROTID MEASUREMENTS: Common Carotid Uovrjv366.7 (cm/sec) Internal Carotid Artery - [id number] (cm/sec) Internal Carotid Artery - mid64.3 (cm/sec) Internal Carotid Artery - lmioev18.2 (cm/sec) Internal Carotid/Common Carotid0.76 LEFT CAROTID MEASUREMENTS: Common Carotid Tymuyp962.1 (cm/sec) Internal Carotid Artery - ydnksnvx16.8 (cm/sec) Internal Carotid Artery - mid49.4 (cm/sec) Internal Carotid Artery - swhfoi15.5 (cm/sec) Internal Carotid/Common Carotid0.75 RPTAT: AA IMPRESSION: No evidence for hemodynamically significant stenosis in the bilateral internal carotid arteries - va lidated velocity measurements with angiographic measurements, velocity criteria are extrapolated fro m diameter data as defined by the Society of Radiologists in Ultrasound Consensus Conference Radiolo gy 2003; 229;340-346. This study does indirectly reference the measurement of the distal ICA diamet er as the denominator for stenosis measurement. Normal antegrade flow in the vertebral arteries bilaterally. .Isidoro Olivo MD, Date Time Electronically viewed and signed by .Isidoro Olivo MD, MD on 10/01/2016 18:03 .S/
--- NOTE | 2016-10-01 18:06 | RADRPT ---
PROCEDURE: US Lower extremity Venous. CLINICAL INDICATION: Bilateral lower extremity swelling TECHNIQUE: Multiple sonographic images of the bilateral lower extremity deep venous system was obt ained utilizing grayscale, color-flow, compressive sonography and doppler imaging with augmentation. The images were reviewed on a PACS workstation. COMPARISON: None. FINDINGS: There is normal compressibility and flow within the bilateral common femoral, superficial femoral , posterior tibial and popliteal veins. RPTAT: AA IMPRESSION: No sonographic evidence for deep venous thrombosis. .Isidoro Olivo MD, MD Date Time Electronically viewed and signed by .Isidoro Olivo MD, on 10/01/2016 18:05 .S/
[2016-10-01] MEDS: VITAMIN E XX SCH (20:00)
[2016-10-01] MEDS: ZEAXANTHIN XX SCH (20:00)
[2016-10-01] MEDS: [UNRECOGNIZED DRUG - OTHER] XX SCH (20:00)
[2016-10-01] MEDS: BETA CAROTENE 25000 UNIT XX SCH (20:00)
[2016-10-01] MEDS: ZINC XX SCH (20:00)
[2016-10-01] MEDS: LUTEIN XX SCH (20:00)
[2016-10-01] MEDS: ASCORBIC ACID XX SCH (20:00)
[2016-10-01] MEDS: COPPER XX SCH (20:00)
[2016-10-01] MEDS: [UNRECOGNIZED DRUG - OTHER] XX SCH (20:00)
[2016-10-01] MEDS ORDERED: ATORVASTATIN 20 MG TAB PO SCH (21:00)
[2016-10-01] MEDS ORDERED: TAMSULOSIN (SR) 0.4 MG CAP PO SCH (21:00)
[2016-10-01] MEDS: [UNRECOGNIZED DRUG - OTHER] PO SCH (22:06)
[2016-10-02] VITALS (9 sets, daily range): BP systolic 138–169; BP diastolic 63–75; PULSE 60–82; RESP 18–19
[2016-10-02] MEDS: ACCUCHECK AT 2AM (Patients on SS coverage) XX SCH (02:00)
[2016-10-02] MEDS: VITAMIN E XX SCH ×2 (04:00→12:05)
[2016-10-02] MEDS: [UNRECOGNIZED DRUG - OTHER] XX SCH ×2 (04:00→12:05)
[2016-10-02] MEDS: ZINC XX SCH ×2 (04:00→12:05)
[2016-10-02] MEDS: [UNRECOGNIZED DRUG - MIXTURE] XX SCH ×2 (04:00→12:05)
[2016-10-02] MEDS: [UNRECOGNIZED DRUG - OTHER] XX SCH ×2 (04:00→12:05)
[2016-10-02] MEDS: BETA CAROTENE 25000 UNIT XX SCH ×2 (04:00→12:05)
[2016-10-02] MEDS: COPPER XX SCH ×2 (04:00→12:05)
[2016-10-02] MEDS: ASCORBIC ACID XX SCH ×2 (04:00→12:05)
[2016-10-02] MEDS: ZEAXANTHIN XX SCH ×2 (04:00→12:05)
[2016-10-02] MEDS: LUTEIN XX SCH ×2 (04:00→12:05)
[2016-10-02] MEDS: LEVOTHYROXINE 100 MCG TAB PO SCH (06:47)
[2016-10-02] MEDS: PYRIDOSTIGMINE PO SCH ×2 (06:48→11:53)
[2016-10-02 07:18] LABS: ADD SCAN DIFF NO
[2016-10-02 07:20] LABS: BASOPHIL # 0.1 10^3/ul (0.0-0.1); BASOPHILS % 0.8 % (0.0-2.0); EOSINOPHILS # 0.3 10^3/ul (0.0-0.5); EOSINOPHILS % 4.7 % (0.0-7.0); HEMATOCRIT 32.9 % (42.0-52.0); HEMOGLOBIN 10.3 g/dl (14.0-18.0); LYMPHOCYTES # 1.8 10^3/ul (0.8-2.9); LYMPHOCYTES % 27.1 % (15.0-51.0); MEAN CORPUSCULAR HEMOGLOBIN 27.3 pg (29.0-33.0); MEAN CORPUSCULAR HGB CONC 31.3 g/dl (32.0-37.0); MEAN CORPUSCULAR VOLUME 87.3 fl (82.0-101.0); MEAN PLATELET VOLUME 10.3 fl (7.4-10.4); MONOCYTE # 0.6 10^3/ul (0.3-0.9); MONOCYTES % 9.2 % (0.0-11.0); NEUTROPHIL # 3.8 10^3/ul (1.6-7.5); NEUTROPHILS % 57.7 % (39.0-77.0); PLATELET COUNT 267 10^3/UL (140-415); RED BLOOD COUNT 3.77 10^6/ul (4.70-6.10); WHITE BLOOD COUNT 6.6 10^3/ul (4.8-10.8)
[2016-10-02] MEDS ORDERED: PYRIDOSTIGMINE 60 MG TAB PO SCH (07:30)
[2016-10-02 07:44] LABS: CREATININE 0.73 mg/dl (0.61-1.24)
[2016-10-02 07:45] LABS: CALCIUM 9.2 mg/dl (8.4-10.2)
[2016-10-02] MEDS: INSULIN ASPART [NOVOLOG] 3 ML PEN SC SCH ×4 (08:00→11:57)
[2016-10-02] MEDS: ALLOPURINOL 100 MG TAB PO SCH (08:21)
[2016-10-02] MEDS: ASPIRIN 81 MG TAB PO SCH (08:21)
[2016-10-02] MEDS: metFORMIN 500 MG TAB PO SCH (08:22)
[2016-10-02] MEDS: LISINOPRIL 10 MG TAB PO SCH (08:22)
[2016-10-02] MEDS ORDERED: BETA CAROTENE/VIT C/E/MIN TAB PO SCH (09:00)
[2016-10-02] MEDS ORDERED: LUTEIN ZEAXANTHIN XX SCH (09:00)
[2016-10-02] MEDS ORDERED: [UNRECOGNIZED DRUG - OTHER] PO SCH (09:00)
[2016-10-02] MEDS ORDERED: [UNRECOGNIZED DRUG - OTHER] XX SCH (09:00)
[2016-10-02] MEDS ORDERED: BETA CAROTENE 25000 UNIT XX SCH (09:00)
[2016-10-02] MEDS ORDERED: LUTEIN ZEAXANTHIN PO SCH (09:00)
--- NOTE | 2016-10-02 09:15 | RADRPT ---
PROCEDURE: XR Abdomen CLINICAL INDICATION: A loose bowel movements, history of constipation TECHNIQUE: AP supine and upright radiographs of the abdomen were submitted COMPARISON: None FINDINGS: The bowel gas pattern is unremarkable. No free air is identified. No organomegaly or discrete mass is evident. No pathological calcification is identified. There is a moderate dextroscoliotic curve to the lumbar spine with degenerative change evident. IMPRESSION: 1. Nonspecific bowel gas pattern with no free air 2. Moderate dextroscoliotic curve to the lumbar spine with degenerative change. Physician Jose Date Time Electronically viewed and signed by Physician Jose on 10/02/2016 09:15 RH/
[2016-10-02] MEDS: [UNRECOGNIZED DRUG - OTHER] PO SCH (11:52)
--- NOTE | 2016-10-02 16:01 | PDOCDIS ---
Discharge Instructions CONDITION Patient Condition: Stable HOME CARE INSTRUCTIONS: Special Diet: CARB CONTROLLED ACTIVITY: Activity Restrictions: Slowly Increase Activity FOLLOW UP/APPOINTMENTS Appointments Please take your medications as prescribed, and see your doctor in the clinic in 1 week. ZEB ZULETA Oct 02, 2016 16:01
--- NOTE | 2016-10-02 16:35 | DS ---
DATE OF ADMISSION: 09/30/2016 DATE OF DISCHARGE: 10/02/2016 Ajay Garcia is an 86-year-old male originally admitted on 09/30/2016, being discharged home on 03/2017. HOSPITAL COURSE: The patient came in with a syncopal event thought to be a possible vasovagal. He was admitted to telemetry floor, seen by cardiology team. He underwent imaging studies including a carotid Doppler study that showed no evidence of any hemodynamically doses in the bilateral internal carotid arteries. He had an echocardiogram performed as well which showed ejection fraction of 50 t o 55%, lower limits of normal systolic function, normal left ventricular cavity size, normal left ve ntricular wall thickness, some trace pulmonic regurgitation. Over the course of hospital stay, the patient had no more syncopal events. The patient attributed syncopal event possibly to taking too much of his home diabetic p.o. medication given that he had a relatively low blood sugar. In any ev ent, sugars were stable. He was seen by giving officer as well. KUB performed as well that show ed a nonspecific bowel gas with no free air, and then he had a lower extremity Doppler study that sh owed no evidence of any DVT bilateral lower extremities. Patient was able to ambulate and tolerate a p.o. diet. He was seen by physical therapy team and recommended home health PT, which we will set up before the patient is discharged home today and if he gets clearance from cardiology team, he wi ll be discharged home today in improved condition. DISCHARGE MEDICATIONS: He will be sent with: 1. Allopurinol 100 mg daily. 2. Atorvastatin 20 mg at bedtime. 3. Beta carotene 25,000 units daily. 4. Glipizide 10 mg b.i.d. 5. Levothyroxine 100 mcg before breakfast. 6. Vizantin 25/5 one capsule daily. 6. Metformin 1000 mg b.i.d. 7. Pyridostigmine 120 mg before lunch, 60 mg at night. 8. Flomax 0.4 mg at bedtime need to follow up with primary care doctor in clinic and endocrinology in next 1 to 2 weeks. FINAL DIAGNOSES: 1. Syncope, ruled out for carotid stenosis with normal echocardiogram results. No signs of any sig nificant cardiac arrhythmia, thought to be secondary to patient possible hypoglycemia. 2. High cholesterol. 3. Diabetes type 2. 4. Hypothyroidism. 5. Benign prostatic hypertrophy. 6. Myasthenia gravis. Time spent discharging patient, 50 minutes. Dictated By: ZEB PARKER Conf#: [id number] DID#: [id number]
--- NOTE | 2016-10-03 18:27 | RADRPT ---
Vent Rate: 60 bpm RR Interval: 0 msec SD Interval: 142 msec QRS Duration: 80 msec QT Interval: 398 msec QTC Interval: 398 msec P-R-T [place]: 51 - 59 - 62 degrees Normal sinus rhythm Normal ECG Electronically Signed By: Richard Thomas [id number]
== END 2016-10-02 17:23 | disposition home or self-care (01) | DRG 639 ==
LOC: E/R 14:47 → PP2 19:13 → MS4 22:41
PROVIDERS: ADMIT Family Medicine; ATTEND Family Medicine
DX: E11.649 Type 2 diabetes mellitus with hypoglycemia without coma (principal); G70.00 Myasthenia gravis without (acute) exacerbation; D64.9 Anemia, unspecified; E83.42 Hypomagnesemia; E78.00 Pure hypercholesterolemia, unspecified; E03.9 Hypothyroidism, unspecified; I10 Essential (primary) hypertension; I49.9 Cardiac arrhythmia, unspecified; M1A.9XX0 Chronic gout, unspecified, without tophus (tophi); N40.0 Benign prostatic hyperplasia without lower urinary tract symptoms; G89.29 Other chronic pain; M54.9 Dorsalgia, unspecified; R60.0 Localized edema; R35.1 Nocturia; Z88.6 Allergy status to analgesic agent
CPT/HCPCS: 36415; 74010; 80048; 80053; 80061; 80076; 81003; 82550; 82553; 82962; 83036; 83735; 84443; 84484; 85025; 93005; 93306; 93880; 93970; 97162; J1815; J3475; J7030

== ENCOUNTER 2018-05-10 02:32 | Emergency (ER) | END 2018-05-10 07:00 | disposition home or self-care (01) ==

== ENCOUNTER 2018-06-30 08:03 | Emergency (ER) | payer OTHER ==
[~2018-06-30] VITALS: Ht 167.6 cm; Wt 75.8 kg
[~2018-06-30 08:03] MED LIST changes: +ATOR20TA38 PO; +ATOR40TA68 PO; +BETA2500 PO; +CIPR500T4 PO; -GLIP-95 PO; +GLIP10TA14 PO; -GLIP5TAB13 PO; +HYDR-4011 PO; +LEVO100T8 PO; +LUTE1CAP4 PO; -METF1000 PO; +METF100010 PO; -OCUVITE PO; +POLY17PO6 PO; +PYRI60TA PO; -SMV40T PO; -SYN112 PO; +TAMS0.4C2 PO; +VIT1CAPS42 PO
[2018-06-30 08:23] VITALS: Ht 167.6 cm; Wt 75.8 kg
--- NOTE | 2018-06-30 09:57 | ERD ---
ER Documentation Chief Complaint Chief Complaint Sent from for evaluation of low HB s/p Iron infusion HPI 88-year-old male presents to the emergency department for evaluation of a sore t hroat. Patient states he has a history of a chronic anemia. He states he received an IV iron infusion yesterday for the chronic anemia. He states he has already had a significant evaluation including negative fecal occult blood. After the IV infusion, he began developing what he describes as a sore throat and discomfort around his right maxillary sinus. He reports no fevers or chills. He reports that he looked at his discharge paperwork from his infusion that gave precautionary instructions about a possible allergic reaction from the IV infusion which included sore throat symptoms. He then came to the emergency department for evaluation of possible allergic symptoms. Patient denies any wheezing, any urticaria and no difficulty swallowing. ROS All systems reviewed and are negative except as per history of present illness. Medications Home Meds Active Scripts Ciprofloxacin Hcl* (Ciprofloxacin Hcl*) 500 Mg Tablet, 500 MG PO BID for 7 Days, TAB Prov:OPAL MCKEON MD 05/10/18 Polyethylene Glycol* (Miralax*) 17 Gm Powd.pack, 17 GM PO DAILY, #7 Prov:OPAL MCKEON MD 05/10/18 Hydrocodone/Acetaminophen ([place] 5-325 Tablet) 1 Each Tablet, 1 TAB PO Q6H PRN for PAIN, #7 TAB Prov:OPAL MCKEON MD 05/10/18 Reported Medications Pyridostigmine Onia* (Mestinon*) 60 Mg Tablet, 120 MG PO BEFORE LUNCH, TAB 10/01/16 Pyridostigmine Onia* (Pyridostigmine Onia*) 60 Mg Tablet, 60 MG PO QHS, TAB 10/01/16 Pyridostigmine Onia* (Pyridostigmine Onia*) 60 Mg Tablet, 120 MG PO BEFORE LUNCH, TAB 10/01/16 Beta-Carotene (Beta Carotene) 25,000 Unit Capsule, 09597 UNIT PO DAILY, CAP 10/01/16 Atorvastatin* (Atorvastatin*) 40 Mg Tablet, 20 MG PO DAILY, #30 TAB 10/01/16 Vit C/E/Zn/Coppr/Lutein/Zeaxan (Preservision Areds 2 Softgel) 1 Each Capsule, 1 EACH PO BID, CAP 10/01/16 Lutein-Zeaxanthin (Lutein-Zeaxanthin) 25-5 Mg Softgel Capsule, 1 CAP PO DAILY, CAP 09/30/16 Atorvastatin Calcium* (Atorvastatin Calcium*) 20 Mg Tablet, 20 MG PO QHS, #30 TAB 09/30/16 Tamsulosin Hcl* (Tamsulosin Hcl*) 0.4 Mg Cap.er.24h, 0.4 MG PO HS, CAP 09/30/16 Levothyroxine Sodium* (Levothyroxine Sodium*) 100 Mcg Tablet, 100 MCG PO BEFORE BREAKFAST, #30 TAB 09/30/16 Allopurinol* (Allopurinol*) 100 Mg Tablet, 100 MG PO DAILY 01/03/12 Glipizide* (Glipizide*) 10 Mg Tablet, 10 MG PO BID 01/03/12 Metformin Hcl* (Metformin Hcl*) 1,000 Mg Tablet, 1000 MG PO BID 01/03/12 Allergies Allergies: Coded Allergies: codeine (Verified Allergy, Unknown, 09/30/16) morphine (Verified Allergy, Unknown, DIZZINESS, NAUSEA, 09/30/16) PMhx/Soc History of Surgery: Yes (back surgery, R shoulder ) Anesthesia Reaction: No Hx Neurological Disorder: No Hx Respiratory Disorders: No Hx Cardiac Disorders: No Hx Psychiatric Problems: No Hx Miscellaneous Medical Probl: Yes (enlarged prostate, refulx,myasthenia gravis,DM,gout,LS fusion) Hx Alcohol Use: No Hx Substance Use: No Hx Tobacco Use: Yes (Quit many many years ago) FmHx Noncontributory for chief complaint Physical Exam Vitals Vital Signs Date Temp Pulse Resp B/P (MAP) Pulse Ox O2 O2 Flow FiO2 Time Delivery Rate 06/30/18 97.6 78 20 161/70 98 08:23 (100) Physical Exam GENERAL: Pale, elderly male in no acute distress HEENT: Pupils equal, round, and reactive to light. EOMI. There is no scleral icterus. NECK: C-spine is soft and supple, there is no meningismus. There is no cervical lymphadenopathy. LUNGS: Clear to auscultation bilaterally. There are no rales, wheezes or rhonchi. HEART: Regular rate and rhythm, no murmurs, clicks, rubs or gallops. ABDOMEN: Soft, non-tender, non-distended. There are bowel sounds in all four quadrants. No rebound or guarding. EXTREMITIES: There is no peripheral cyanosis or edema. No focal swelling or erythema. NEURO: The patient moves all four extremities with 5/5 strength. Cranial nerves II - XII are intact. Normal gait. Alert and oriented SKIN: There is no apparent rash or petechiae. HEME/LYMPHATIC: There is no evidence of excessive bruising or lymphedema. PSYCHIATRIC: The patient does not appear anxious or depressed. Procedures/MDM Patient was taken to a room, seen and examined Medical decision makin-year-old male presents to the emergency department for evaluation of possible allergic symptoms after an IV iron infusion for a chronic anemia. Patient shows no evidence on his clinical examination of any allergy. There is no urticaria, no evidence of sore throat, no evidence of any throat findings or other concerns regarding allergic reaction. He does seem to have a chronic anemia, but is otherwise asymptomatic without any other complaints. Patient states he has good outpatient follow-up and is already had workup for his anemia, I have therefore deferred any other evaluation of the chronic anemia. Patient otherwise feels well and seems appropriate for outpatient care at this time. Departure Diagnosis: Primary Impression: Sinusitis Condition: Stable Patient Instructions: Treating Chronic Sinusitis Additional Instructions: Please speak with your doctor tomorrow. Return for any problems or concerns SOPHIE PEARSON Jun 30, 2018 09:56
[2018-06-30 10:09] VITALS: BP 132/61; PULSE 70; RESP 18
== END 2018-06-30 10:09 | disposition home or self-care (01) ==
LOC: E/R 08:03
DX: J32.9 Chronic sinusitis, unspecified (principal); E11.9 Type 2 diabetes mellitus without complications; Z79.84 Long term (current) use of oral hypoglycemic drugs; Z87.891 Personal history of nicotine dependence
CPT/HCPCS: 99283

== ENCOUNTER 2019-01-03 04:18 | Inpatient (IN) | payer OTHER ==
[~2019-01-03] VITALS: Ht 165.1 cm; Wt 72.4 kg
[2019-01-03] MEDS ORDERED: ONDANSETRON 4 MG INJ IV STA (05:11)
[2019-01-03] MEDS ORDERED: LIDOCAINE/MYLANTA 40 ML BTL PO STA (06:23)
[2019-01-03] MEDS ORDERED: FAMOTIDINE 20 MG TAB PO STA (06:23)
[2019-01-03] MEDS ORDERED: ONDANSETRON 4 MG INJ IV ONE (06:55)
[2019-01-03] MEDS ORDERED: SOD CHLORIDE 0.9% 1,000 ML IV ONE (06:55)
[2019-01-03] MEDS ORDERED: KETAMINE (50 MG/ML) 10 ML VIAL IV ONE (07:00)
--- NOTE | 2019-01-03 07:20 | ERD ---
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 The patient indicated the pain is been present for 24 hours. 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 Morton who instructed the patient to come to the emergency department if his symptoms have not improved. His last dose of chemotherapy was 2 days prior to arrival. The patient states he had persistent nausea. There is no radiation of the pain. He has no chest pressure. He has no shortness of breath. He denies any swelling of his lower extremities. He denies any hemoptysis hematemesis or melanotic stools. He states he has been expressing constipation and his last bowel movement was 24 hours ago. The patient also has been taking Augmentin for sinusitis for the past 3 days. ROS All systems reviewed and are negative except as per history of present illness. Medications Home Meds Reported Medications Amoxicillin/Potassium Clav (Amox-Clav 875-125 mg Tablet) 875-125 mg Tab, 1 TAB PO BID, #20 TAB filled 12-23-18 for 10 days 01/03/19 Lutein/Zeaxanthin ([facility] LUTEIN 40 MG SOFTGEL) 1 Each Capsule, 1 EACH PO DAILY, CAP 01/03/19 C,E,Zinc,Copper 11/Cfikj4j/Lut (Ocuvite Adult 50 Plus Softgel) 1 Each Capsule, 1 EACH PO DAILY, CAP 01/03/19 Silodosin (Rapaflo) 8 Mg Capsule, 8 MG PO HS, CAP 01/03/19 Pyridostigmine Osmond* (Pyridostigmine Osmond*) 60 Mg Tablet, 120 MG PO 2X daily & bedtime, TAB 01/03/19 Levothyroxine Sodium* (Levoxyl*) 100 Mcg Tablet, 100 MCG PO BEFORE BREAKFAST, #30 TAB 01/03/19 Allopurinol* (Allopurinol*) 100 Mg Tablet, 100 MG PO DAILY, TAB 01/03/19 Metformin Hcl* (Metformin Hcl*) 1,000 Mg Tablet, 1000 MG PO WITH BREAKFAST DINNE, #60 TAB 01/03/19 Atorvastatin Calcium* (Atorvastatin Calcium*) 20 Mg Tablet, 20 MG PO QHS, #30 TAB 7/12/19 Glipizide* (Glipizide*) 10 Mg Tablet, 20 MG PO BID, TAB 01/03/19 Folic Acid* (Folic Acid*) 1 Mg Tablet, 1 MG PO DAILY, TAB 01/03/19 Discontinued Reported Medications Pyridostigmine Osmond* (Mestinon*) 60 Mg Tablet, 120 MG PO BEFORE LUNCH, TAB 10/01/16 Pyridostigmine Osmond* (Pyridostigmine Osmond*) 60 Mg Tablet, 60 MG PO QHS, TAB 10/01/16 Pyridostigmine Osmond* (Pyridostigmine Osmond*) 60 Mg Tablet, 120 MG PO BEFORE LUNCH, TAB 10/01/16 Beta-Carotene (Beta Carotene) 25,000 Unit Capsule, 89170 UNIT PO DAILY, CAP 10/01/16 Atorvastatin* (Atorvastatin*) 40 Mg Tablet, 20 MG PO DAILY, #30 TAB 10/01/16 Vit C/E/Zn/Coppr/Lutein/Zeaxan (Preservision Areds 2 Softgel) 1 Each Capsule, 1 EACH PO BID, CAP 10/01/16 Lutein-Zeaxanthin (Lutein-Zeaxanthin) 25-5 Mg Softgel Capsule, 1 CAP PO DAILY, CAP 09/30/16 Atorvastatin Calcium* (Atorvastatin Calcium*) 20 Mg Tablet, 20 MG PO QHS, #30 TAB 09/30/16 Tamsulosin Hcl* (Tamsulosin Hcl*) 0.4 Mg Cap.er.24h, 0.4 MG PO HS, CAP 09/30/16 Levothyroxine Sodium* (Levothyroxine Sodium*) 100 Mcg Tablet, 100 MCG PO BEFORE BREAKFAST, #30 TAB 09/30/16 Allopurinol* (Allopurinol*) 100 Mg Tablet, 100 MG PO DAILY 01/03/12 Glipizide* (Glipizide*) 10 Mg Tablet, 10 MG PO BID 01/03/12 Metformin Hcl* (Metformin Hcl*) 1,000 Mg Tablet, 1000 MG PO BID 01/03/12 Discontinued Scripts Ciprofloxacin Hcl* (Ciprofloxacin Hcl*) 500 Mg Tablet, 500 MG PO BID for 7 Days, TAB Prov:OPAL MCKEON MD 05/10/18 Polyethylene Glycol* (Miralax*) 17 Gm Powd.pack, 17 GM PO DAILY, #7 Prov:OPAL MCKEON MD 05/10/18 Hydrocodone/Acetaminophen ([place] 5-325 Tablet) 1 Each Tablet, 1 TAB PO Q6H PRN for PAIN, #7 TAB Prov:OPAL MCKEON MD 05/10/18 Allergies Allergies: Coded Allergies: codeine (Verified Allergy, Unknown, 01/03/19) morphine (Verified Allergy, Unknown, DIZZINESS, NAUSEA, 01/03/19) PMhx/Soc History of Surgery: Yes (back surgery, R shoulder ) Anesthesia Reaction: No Hx Neurological Disorder: No Hx Respiratory Disorders: No Hx Cardiac Disorders: No Hx Psychiatric Problems: No Hx Miscellaneous Medical Probl: Yes (enlarged prostate, refulx,myasthenia gravis,DM,gout,LS fusion) Hx Alcohol Use: No Hx Substance Use: No Hx Tobacco Use: Yes Smoking Status: Former smoker Physical Exam Vitals Vital Signs Date Temp Pulse Resp B/P (MAP) Pulse Ox O2 O2 Flow FiO2 Time Delivery Rate 01/03/19 97.8 72 15 141/67 100 Nasal 3.0 08:30 (91) Cannula 01/03/19 97.6 85 17 157/80 95 Room Air 06:30 (105) 01/03/19 82 19 125/67 93 Room Air 05:44 (86) 01/03/19 97.3 81 18 183/81 96 04:31 (115) Physical Exam Constitutional:Well-developed. Well-nourished. HEENT:Normocephalic. Atraumatic.Pupils were equal round reactive to light. Moist mucous membranes.No tonsillar exudates. Neck: No nuchal rigidity. No lymphadenopathy. No posterior cervical spine tenderness or step-offs. Respiratory: Not using accessory muscles of respiration.Lungs were clear to auscultation bilaterally. No rhonchi. No rales. No wheezing. Cardiovascular: Regular rate regular rhythm.No murmurs. No rubs were apprec iated.S1, S2 normal. Distal pulses are palpable 2+ bilaterally. GI: Abdomen was soft. Epigastric tenderness with negative Jiang sign. Non Distended. No pulsatile abdominal masses or bruits. No rebound. No guarding. Bowel sounds were hypoactive Muscle skeletal: Full range of motion of both the upper and lower extremities bilaterally.Normal muscle tone.No assymetrical calf tenderness or swelling. Skin: No petechia, no purpura. No lesions on the palms or the soles of the feet. No maculopapular rash. NEURO: Patient was alert, awake, orientated x3.No facial droop. Gait observed and normal with no ataxia.Speech had regular rate and rhythm. No focal neurological deficits. Result Diagram: 01/03/19 0450 01/03/19 0450 Results 24 hrs Laboratory Tests Test 01/03/19 04:36 01/03/19 04:50 Bedside Glucose 184 mg/dL White Blood Count 1.6 10^3/ul Red Blood Count 3.41 10^6/ul Hemoglobin 9.4 g/dl Hematocrit 29.2 % Mean Corpuscular Volume 85.6 fl Mean Corpuscular Hemoglobin 27.6 pg Mean Corpuscular Hemoglobin Concent 32.2 g/dl Red Cell Distribution Width 13.8 % Platelet Count 183 10^3/UL Mean Platelet Volume 9.9 fl Immature Granulocytes % 1.900 % Neutrophils % % Segmented Neutrophils % (Manual) 38 % Band Neutrophils % (Manual) 9 % Lymphocytes % % Lymphocytes % (Manual) 29 % Reactive Lymphocytes % (Manual) 1 % Monocytes % % Monocytes % (Manual) 17 % Eosinophils % % Eosinophils % (Manual) 3 % Basophils % % Basophils % (Manual) 3 % Nucleated Red Blood Cells % 0.0 /100WBC Immature Granulocytes # 0.030 10^3/ul Neutrophils # 10^3/ul Neutrophils # (Manual) 0.6 10^3/ul Band Neutrophils # 0.1 10^3/ul Lymphocytes (Manual) 0.4 10^3/ul Lymphocytes # 10^3/ul Reactive Lymphocytes # 0.0 10^3/ul Monocytes # 10^3/ul Monocytes # (Manual) 0.2 10^3/ul Eosinophils # 10^3/ul Basophils # 10^3/ul Basophils # (Manual) 0.0 10^3/ul Nucleated Red Blood Cells # 10^3/ul Platelet Estimate NORMAL Giant Platelets 5 % Poikilocytosis 1+ Sodium Level 136 mmol/L Potassium Level 3.3 mmol/L Chloride Level 105 mmol/L Carbon Dioxide Level 23 mmol/L Anion Gap 8 Blood Urea Nitrogen 19 mg/dl Creatinine 0.75 mg/dl Est Glomerular Filtrat Rate mL/min mL/min Glucose Level 182 mg/dl Calcium Level 9.9 mg/dl Total Bilirubin 0.4 mg/dl Direct Bilirubin 0.00 mg/dl Indirect Bilirubin 0.4 mg/dl Aspartate Amino Transf (AST/SGOT) 30 IU/L Alanine Aminotransferase (ALT/SGPT) 49 IU/L Alkaline Phosphatase 140 IU/L Troponin I < 0.012 ng/ml Total Protein 6.9 g/dl Albumin 3.6 g/dl Globulin 3.30 g/dl Albumin/Globulin Ratio 1.09 Lipase 342 U/L Current Medications Medications Dose Sig/Pancho Start Time Status Last (Trade) Ordered Route PRN Stop Time Admin Dose Reason Admin Ondansetron 4 mg ONCE STAT 01/03/19 DC 01/03/19 HCl (Zofran IV 05:11 05:42 Inj) 01/03/19 05:12 Famotidine 20 mg ONCE STAT 01/03/19 DC 01/03/19 (Pepcid) PO 06:23 06:27 01/03/19 06:24 40 ml ONCE STAT 01/03/19 DC 01/03/19 Miscellaneous PO 06:23 06:27 Medication 01/03/19 06:24 (Gi Cocktail (2)) Ketamine 20 mg ONCE ONCE 01/03/19 DC 01/03/19 HCl IV 07:00 07:41 (Ketalar) 01/03/19 07:01 Ondansetron 4 mg ONCE ONCE 01/03/19 DC 01/03/19 HCl (Zofran IV 06:55 07:22 Inj) 01/03/19 06:56 Sodium 1,000 ml @ Q1H ONCE 01/03/19 DC 01/03/19 Chloride 1,000 mls/hr IV 06:55 07:40 01/03/19 07:54 Bisacodyl 10 mg ONCE ONCE 01/03/19 DC 01/03/19 (Dulcolax IA 07:30 07:21 Supp) 01/03/19 07:31 Piperacillin 100 ml @ ONCE STAT 01/03/19 Sod/ 200 mls/hr IVPB 09:44 Tazobactam 01/03/19 10:13 Sod Procedures/MDM The patient presented to the emergency department with epigastric pain. My differential diagnosis included but was not limited to abdominal aortic aneurysm, choledocholithiasis, gallstone ileus, renal colic, pyelonephritis, pancreatitis, peptic ulcer disease, atypical myocardical infarction, mesenteric ischemia, GERD, pulmonary infarction. The patient was placed on a airport engineer, continuous pulse oximetry and IV access was established by nursing staff. The patient was given Zofran for nausea and a GI cocktail but he stated this worsened his symptoms. He has an allergy to morphine and codeine which he indicates makes him feel very nauseous. Therefore he was given IV ketamine An EKG was obtained to rule out myocardial ischemia. There was no elevation of LFTs to suggest ductal obstruction, cholangitis, cholecystiitis or hepatitis. Given that the urinalysis did not show bilirubinuria, my suspicion for common duct obstruction or hepatitis was low. 12 Lead EKG tracing ordered and reviewed by myself showed: Normal sinus rhythm of 80 bpm and no arrhythmia. IA interval normal. QRS duration normal. No ST segment elevation No ST segment depression. No changes consistent with acute ischemia. I obtained a chest radiograph that showed no infiltrates no pneumothorax and no pleural effusions. The patient does have a known history of right-sided lung carcinoma. Due to the severity of the patient's pain I did feel is necessary to obtain a CT scan of the abdomen. This is reviewed by the radiologist who indicated that the patient had significant gastric distention and therefore at this time I did feel the patient would benefit from an NG tube. The CT scan reviewed by the radiologist indicated the followin. Moderately distended gallbladder with diffuse gallbladder wall thickening and gallbladder sludge/stone concerning for acute cholecystitis. Consider ultrasound for confirmation. 2. Indeterminate scattered liver hypodensities largest in the right liver lobe measures 2 cm. Metastatic disease cannot be excluded. Recommend further evaluation with MRI or CT with liver protocol. 3. Nonobstructive punctated right renal stones. 4. Moderate to severely distended stomach in conjunction with slightly prominent fluid filled loops of small bowel as well as stool and fluid-filled colon likely consistent with ileus. There is moderate narrowing of the second portion of the duodenum due to compression between distended gallbladder and pancreatic head which may contributes to the distension of the stomach. 5. New scattered sclerotic lesions of the vertebral bodies when comparing to 05/10/2018 CT, concerning for metastatic disease. Further evaluation with bone scan is recommended. 6. Other findings as discussed above. The patient had no transaminitis and alkaline phosphatase was normal. Jiang sign was negative. I did obtain an ultrasound of the gallbladder and indicated the following: Moderately distended gallbladder with multiple tiny stones and sludge. Mild gallbladder wall thickening and trace pericholecystic fluid. The findings may represent acute cholecystitis. My clinical suspicion was low for acute cholecystitis at this time but given the findings on the radiographic imaging I did feel is necessary to administer IV antibiotics which included Zosyn. Again the patient had a negative Jiang sign and the tenderness was more prominent in the epigastric region and not the right upper quadrant. I will obtain a HIDA scan for further evaluation at this time Patient will be admitted to the hospitalist. He will be going to the telemetry service in serious condition. Critical Care: Time: 55 minutes Treatments/Evaluations: Close monitoring and treatment of unstable vital signs, cardiorespiratory, and neurologic status, while maintaining tight balance of fluid, respiratory, and cardiac interventions. Time does not include performing any of the above billable procedures. Departure Diagnosis: Primary Impression: Ileus Additional Impression: Cholelithiasis Cholelithiasis location: gallbladder Cholecystitis presence: without cholecystitis Biliary obstruction: without biliary obstruction Qualified Codes: K80.20 - Calculus of gallbladder without cholecystitis without obstruction Condition: Serious SUHAS CHAO MD Jan 03, 2019 07:20
[2019-01-03] MEDS ORDERED: BISACODYL 10 MG SUPP PR ONE (07:30)
[2019-01-03] MEDS ORDERED: GLIP10TA14 PO (09:36)
[2019-01-03] MEDS ORDERED: FOLI-49 PO (09:36)
[2019-01-03] MEDS ORDERED: METF100010 PO (09:37)
[2019-01-03] MEDS ORDERED: ALLO100T PO (09:37)
[2019-01-03] MEDS ORDERED: ATOR20TA38 PO (09:37)
[2019-01-03] MEDS ORDERED: LEVO100T82 PO (09:38)
[2019-01-03] MEDS ORDERED: PYRI60TA9 PO (09:39)
[2019-01-03] MEDS ORDERED: SILO8CAP2 PO (09:40)
[2019-01-03] MEDS ORDERED: C,E,1CAP PO (09:40)
[2019-01-03] MEDS ORDERED: LUTE1CAP PO (09:41)
[2019-01-03] MEDS ORDERED: AMOX1TAB10 PO (09:42)
[2019-01-03] MEDS ORDERED: PIPER-TAZO 3.375 GM IV (PMX) 100 ML IVPB STA (09:44)
[2019-01-03] MEDS ORDERED: ACETAMINOPHEN 325 MG TAB PO PRN (11:00)
[2019-01-03] MEDS ORDERED: ONDANSETRON 4 MG INJ IV PRN ×2 (11:00→13:00)
--- NOTE | 2019-01-03 12:34 | HP ---
Date/Time of Note Date/Time of Note DATE: 01/03/19 TIME: 12:24 Assessment/Plan VTE Prophylaxis SCD applied (from Nsg): Yes Pharmacological prophylaxis: NA/contraindicated Pharm contraindication: anticoag not tolerated Lines/Catheters IV Catheter Type (from Nrsg): FRANECS -CATH Assessment/Plan Hospital Course SUBJECTIVE: Elderly male, lying in bed. No abdominal pain, nausea or vomiting at this time. OBJECTIVE: Vital signs-see below PHYSICAL EXAM: Constitutional: Elderly male,,not in acute distress. HEENT: Head atraumatic and normocephalic. Eyes: Extraocular muscles intact. Anicteric sclerae. Pupils equal bilaterally, reactive to light. NECK: Supple without lymph node. CHEST: Clear and good breath sounds equally. No wheezing. No rhonchi. HEART: S1, S2. Regular rate and rhythm. ABDOMEN: Soft/non tender with no rebound tenderness. Bowel sounds were present. EXTREMITIES: No cyanosis, clubbing or edema. NEUROLOGIC: Alert and oriented x3. No focal deficit. No sensory deficit. PSYCHOSOCIAL: No signs of depression. INTEGUMENTARY: No open wounds. ASSESSMENT AND PLAN:88 yo M w/SCC undergoing chemotherapy, DM2,hlp,bph,constipation here w/abd pain,dry heaves after eating egg salad for lunch yesterday,found to have serve gastric distention w/ Ileus.. Ileus -CT reviewed. -Bowel regimen/enema to treat constipation. -Continue NG tube decompression for 24 hours with repeat KUB in a.m. -Bowel rest/n.p.o., IV fluids, PRN pain meds, PRN Zofran,prokineticsx4 dose, ambulation Cholelithiasis -Benign RUQ exam,(-)Jiang sign. No fevers,no leukocytosis.However, CT/ultrasound read as "possible acute cholecystitis". Consulted Dr. Newman who recommended HIDA scan. Small cell carcinoma, undergoing chemotherapy -Last chemo was December 29 and patient's oncologist is Dr. Morton. Next onco f/u scheduled for January 15 Neutropenia, likely from chemotherapy -Currently WBC stable. No need for G-CSF Anemia of chronic illness -Stable H&H DMII -A1c. Basal/bolus insulin Hyperlipidemia -Hold oral meds until stable for p.o. BPH -We will resume home medication when stable for p.o. Myasthenia gravis -Resume home medication when stable for p.o. Debility -Overall, patient with back surgeries, myasthenia gravis and he uses [facility] at home and is not requesting any placement assistance. -PT eval DVT prophylaxis: SCDs PUD prophylaxis: PPI Rest of the management depend on clinical course. Approximately 60-minute was spent on this history and physical. Patient was seen in collaboration with Dr. Logan. Result Diagram: 01/03/1944901/03/190 Results 24hrs Laboratory Tests Test 01/03/19 04:36 01/03/19 04:50 Bedside Glucose 184 White Blood Count 1.6 #L Red Blood Count 3.41 L Hemoglobin 9.4 L Hematocrit 29.2 L Mean Corpuscular Volume 85.6 Mean Corpuscular Hemoglobin 27.6 L Mean Corpuscular Hemoglobin Concent 32.2 Red Cell Distribution Width 13.8 Platelet Count 183 # Mean Platelet Volume 9.9 Immature Granulocytes % 1.900 H Neutrophils % Segmented Neutrophils % (Manual) 38 L Band Neutrophils % (Manual) 9 H Lymphocytes % Lymphocytes % (Manual) 29 Reactive Lymphocytes % (Manual) 1 H Monocytes % Monocytes % (Manual) 17 H Eosinophils % Eosinophils % (Manual) 3 Basophils % Basophils % (Manual) 3 H Nucleated Red Blood Cells % 0.0 Immature Granulocytes # 0.030 Neutrophils # Neutrophils # (Manual) 0.6 L Band Neutrophils # 0.1 Lymphocytes (Manual) 0.4 L Lymphocytes # Reactive Lymphocytes # 0.0 Monocytes # Monocytes # (Manual) 0.2 L Eosinophils # Basophils # Basophils # (Manual) 0.0 Nucleated Red Blood Cells # Platelet Estimate NORMAL Giant Platelets 5 H Poikilocytosis 1+ Sodium Level 136 Potassium Level 3.3 L Chloride Level 105 Carbon Dioxide Level 23 Anion Gap 8 Blood Urea Nitrogen 19 Creatinine 0.75 Est Glomerular Filtrat Rate mL/min Glucose Level 182 Calcium Level 9.9 Total Bilirubin 0.4 Direct Bilirubin 0.00 Indirect Bilirubin 0.4 Aspartate Amino Transf (AST/SGOT) 30 Alanine Aminotransferase (ALT/SGPT) 49 Alkaline Phosphatase 140 H Troponin I < 0.012 Total Protein 6.9 Albumin 3.6 Globulin 3.30 H Albumin/Globulin Ratio 1.09 Lipase 342 H HPI/ROS Admit Date/Time Admit Date/Time Hx of Present Illness This is a 88-year-old male with a history of small cell carcinoma diagnosed in November 2018 on chemotherapy with right Port-A-Cath placed, dyslipidemia, hypothyroidism, diabetes, BPH, myasthenia gravis, former smoker, back surgery L4-L5, appendectomy, kidney stone removal, lung nodule resection, colonoscopy 15 years ago, was brought into the emergency room with sudden onset of generalized abdominal pain with dry heaves after patient had egg salad for lunch yesterday. Patient also found epigastric burning sensation. Patient's last chemo was on J lupis 7. He denied any chest pain, palpitation, fevers, chills, nausea, vomiting, dysuria, hematuria, diarrhea, numbness, tingling, dizziness, headache, loss of consciousness, or other constitutional symptoms. Patient felt like his been constipated lately. In the emergency room, patient was noted with a white count of 1600, hemoglobin 9.4, hematocrit 29.2, potassium 3.3, alkaline phosphatase 140, lipase 342. Patient's initial CT abdomen and pelvis showed gallstones with possible cholecystitis. There is also diffuse gastric distention with fluid-filled loops of small bowel, consistent with ileus. No fevers. Patient had blood pressure 183/81 on arrival. NG tube was inserted in the emergency room which was draining undigested food materials. ROS A 12 point review of system was assessed and is negative other than what is mentioned in the HPI PMH/Family/Social Past Medical History See HPI Medications Current Medications Ondansetron HCl (Zofran Inj) 4 mg ER BRIDGE PRN IV NAUSEA/VOMITING; Start 01/03/19 at 11:00; Stop 01/04/19 at 10:59 Acetaminophen (Tylenol Tab) 650 mg ER BRIDGE PRN PO .MILD PAIN 1-3 OR TEMP; Start 01/03/19 at 11:00; Stop 01/04/19 at 10:59 Coded Allergies: codeine (Verified Allergy, Unknown, 01/03/19) morphine (Verified Allergy, Unknown, DIZZINESS, NAUSEA, 01/03/19) Past Surgical History See HPI Family History Significant Family History: cancer, other Social History Former smoker. No history of alcohol or drug abuse. Smoking Status: Former smoker Exam/Review of Systems Vital Signs Vitals Vital Signs Date Temp Pulse Resp B/P (MAP) Pulse Ox O2 O2 Flow FiO2 Time Delivery Rate 01/03/19 97.8 71 15 146/66 98 Room Air 12:08 (92) 01/03/19 3.0 08:30 STAN VANEGAS V. [facility] [employer] Jan 03, 2019 12:34
[2019-01-03 12:56] VITALS: BP 167/74; PULSE 71; RESP 18
[2019-01-03] MEDS ORDERED: ACETAMINOPHEN 650 MG SUPP PR PRN (13:00)
[2019-01-03] MEDS ORDERED: GLUCOSE GEL 15 GRAM TUBE PO PRN ×2 (13:00)
[2019-01-03] MEDS ORDERED: DEXTROSE 50% 50 ML SYRINGE IV PRN ×2 (13:00)
[2019-01-03] MEDS: INSULIN ASPART [NOVOLOG] 3 ML PEN SC SCH ×3 (13:00→21:00)
[2019-01-03] MEDS ORDERED: GLUCAGON 1 MG INJ IM PRN (13:00)
[2019-01-03] MEDS ORDERED: GLUCOSE GEL 15 GRAM TUBE BUCCAL PRN (13:00)
[2019-01-03] MEDS ORDERED: NACL 0.9% 3 ML SYG IV SCH (13:00)
[2019-01-03] MEDS ORDERED: BISACODYL 10 MG SUPP PR PRN (13:00)
[2019-01-03] MEDS ORDERED: morphine 2 MG INJ IV PRN (13:00)
[2019-01-03] MEDS ORDERED: BISACODYL 30 ML ENEMA PR ONE (13:00)
[2019-01-03 13:19] VITALS: Ht 165.1 cm; Wt 72.4 kg
[2019-01-03] MEDS: SOD CHLORIDE 0.9% 1,000 ML IV SCH (14:30)
[2019-01-03] MEDS: METOCLOPRAMIDE 10 MG INJ IV SCH ×3 (14:42→23:48)
[2019-01-03] MEDS ORDERED: hydrALAzine 20 MG INJ IV PRN (16:30)
[2019-01-03 16:52] VITALS: BP 163/77; PULSE 72; RESP 18
[2019-01-03 19:24] VITALS: BP 167/78; PULSE 80; RESP 18
[2019-01-03] MEDS: INSULIN GLARGINE [LANTus] (100 UNITS/ML) SYG SC SCH (20:12)
[2019-01-03] MEDS: PIPER-TAZO 3.375 GM IV (PMX) 100 ML IVPB SCH (21:28)
[2019-01-03] MEDS: FAMOTIDINE 20 MG INJ IV SCH (21:28)
[2019-01-04] VITALS (7 sets, daily range): BP systolic 143–174; BP diastolic 65–84; PULSE 69–86; RESP 18–20
[2019-01-04] MEDS: INSULIN ASPART [NOVOLOG] 3 ML PEN SC SCH ×6 (00:31→21:31)
[2019-01-04] MEDS: SOD CHLORIDE 0.9% 1,000 ML IV SCH ×2 (01:30→10:28)
[2019-01-04] MEDS ORDERED: ACCU-CHEK XX SCH (02:00)
[2019-01-04] MEDS: PIPER-TAZO 3.375 GM IV (PMX) 100 ML IVPB SCH ×5 (02:15→23:15)
[2019-01-04] MEDS: METOCLOPRAMIDE 10 MG INJ IV SCH (05:28)
[2019-01-04] MEDS ORDERED: PANTOPRAZOLE 40 MG INJ IV SCH (06:00)
[2019-01-04] MEDS: FAMOTIDINE 20 MG INJ IV SCH ×2 (08:33→21:13)
--- NOTE | 2019-01-04 08:52 | CONS ---
Assessment/Plan Assessment/Plan Assessment/Plan (Daily) Cholecystitis very unlikely. Although radiological findings and HIDA suggest, patient denies right upper quadrant abdominal pain and has no tenderness to his right upper quadrant. In lieu of recent lung cancer diagnosis and ongoing chemotherapy, would defer surgery at this point. No acute surgical indication at this point. Can follow-up as outpatient regarding cholelithiasis Will DC NG tube and start clear liquid diet as ileus seems to have resolved. Patient is passing flatus and minimal NG tube output. Consultation Date/Type/Reason Admit Date/Time Date/Time of Note DATE: 01/04/19 TIME: 08:48 Hx of Present Illness The patient is an 88-year-old male who experienced epigastric burning pain. He had some nausea and emesis as well. Patient states he also had heartburn. He treated his heartburn with Tums but this did not improve. He denies right upper quadrant pain. He states he is does have a history of constipation. He is passing flatus this morning. Patient last bowel movement was about 24 hours ago. He denies fevers or chills. Work-up in this ER was consistent with ileus. However, the patient did have gallstones with questionable cholecystitis and I was called for consultation. 14 point review of systems was performed. Pertinent negatives and positive per HPI. Past Medical History Medical History: diabetes, high cholesterol, other (Lung cancer, gout, BPH, hypothyroidism) Home Meds Reported Medications Amoxicillin/Potassium Clav (Amox-Clav 875-125 mg Tablet) 875-125 mg Tab, 1 TAB PO BID, #20 TAB filled 12-23-18 for 10 days 01/03/19 Lutein/Zeaxanthin ([facility] LUTEIN 40 MG SOFTGEL) 1 Each Capsule, 1 EACH PO DAILY, CAP 01/03/19 C,E,Zinc,Copper 11/Xdhdv5w/Lut (Ocuvite Adult 50 Plus Softgel) 1 Each Capsule, 1 EACH PO DAILY, CAP 01/03/19 Silodosin (Rapaflo) 8 Mg Capsule, 8 MG PO HS, CAP 01/03/19 Pyridostigmine [place]* (Pyridostigmine Orlando*) 60 Mg Tablet, 120 MG PO 2X daily & bedtime, TAB 01/03/19 Levothyroxine Sodium* (Levoxyl*) 100 Mcg Tablet, 100 MCG PO BEFORE BREAKFAST, #30 TAB 01/03/19 Allopurinol* (Allopurinol*) 100 Mg Tablet, 100 MG PO DAILY, TAB 01/03/19 Metformin Hcl* (Metformin Hcl*) 1,000 Mg Tablet, 1000 MG PO WITH BREAKFAST DINNE, #60 TAB 01/03/19 Atorvastatin Calcium* (Atorvastatin Calcium*) 20 Mg Tablet, 20 MG PO QHS, #30 TAB 01/03/19 Glipizide* (Glipizide*) 10 Mg Tablet, 20 MG PO BID, TAB 01/03/19 Folic Acid* (Folic Acid*) 1 Mg Tablet, 1 MG PO DAILY, TAB 01/03/19 Discontinued Reported Medications Pyridostigmine [place]* (Mestinon*) 60 Mg Tablet, 120 MG PO BEFORE LUNCH, TAB 10/01/16 Pyridostigmine [place]* (Pyridostigmine [place]*) 60 Mg Tablet, 60 MG PO QHS, TAB 10/01/16 Pyridostigmine [place]* (Pyridostigmine Orlando*) 60 Mg Tablet, 120 MG PO BEFORE LUNCH, TAB 10/01/16 Beta-Carotene (Beta Carotene) 25,000 Unit Capsule, 70665 UNIT PO DAILY, CAP 10/01/16 Atorvastatin* (Atorvastatin*) 40 Mg Tablet, 20 MG PO DAILY, #30 TAB 10/01/16 Vit C/E/Zn/Coppr/Lutein/Zeaxan (Preservision Areds 2 Softgel) 1 Each Capsule, 1 EACH PO BID, CAP 10/01/16 Lutein-Zeaxanthin (Lutein-Zeaxanthin) 25-5 Mg Softgel Capsule, 1 CAP PO DAILY, CAP 09/30/16 Atorvastatin Calcium* (Atorvastatin Calcium*) 20 Mg Tablet, 20 MG PO QHS, #30 TAB 09/30/16 Tamsulosin Hcl* (Tamsulosin Hcl*) 0.4 Mg Cap.er.24h, 0.4 MG PO HS, CAP 09/30/16 Levothyroxine Sodium* (Levothyroxine Sodium*) 100 Mcg Tablet, 100 MCG PO BEFORE BREAKFAST, #30 TAB 09/30/16 Allopurinol* (Allopurinol*) 100 Mg Tablet, 100 MG PO DAILY 01/03/12 Glipizide* (Glipizide*) 10 Mg Tablet, 10 MG PO BID 01/03/12 Metformin Hcl* (Metformin Hcl*) 1,000 Mg Tablet, 1000 MG PO BID 01/03/12 Discontinued Scripts Ciprofloxacin Hcl* (Ciprofloxacin Hcl*) 500 Mg Tablet, 500 MG PO BID for 7 Days, TAB Prov:OPAL MCKEON MD 05/10/18 Polyethylene Glycol* (Miralax*) 17 Gm Powd.pack, 17 GM PO DAILY, #7 Prov:OPAL MCKEON MD 05/10/18 Hydrocodone/Acetaminophen ([place] 5-325 Tablet) 1 Each Tablet, 1 TAB PO Q6H PRN for PAIN, #7 TAB Prov:OPAL MCKEON MD 05/10/18 Medications Current Medications Sodium Chloride 1,000 ml @ 80 mls/hr [id number] IV Last administered on 01/03/19at 14:30; Admin Dose 80 MLS/HR; Start 01/03/19 at 13:00 IV Flush (NS 3 ml) 3 ml PER PROTOCOL IV ; Start 01/03/19 at 13:00 Ondansetron HCl (Zofran Inj) 4 mg Q6H PRN IV NAUSEA/VOMITING; Start 01/03/19 at 13:00 Acetaminophen (Tylenol Supp) 650 mg Q6H PRN ND .PAIN 1-3 OR TEMP Last administered on 01/04/19at 08:33; Admin Dose 650 MG; Start 01/03/19 at 13:00 Morphine Sulfate (morphine) 2 mg Q4H PRN IV .SEVERE PAIN 7-10; Start 01/03/19 at 13:00 Bisacodyl (Dulcolax Supp) 10 mg DAILY PRN ND .CONSTIPATION; Start 01/03/19 at 13:00 Insulin Glargine (Lantus) 11 units DAILY@2000 SC Last administered on 01/03/19at 20:12; Admin Dose 11 UNITS; Start 01/03/19 at 20:00 Insulin Aspart (Novolog Insulin Pen) NOVOLOG *MILD* ALGORI... Q4 SC ; Start 01/03/19 at 13:00 Miscellaneous Information 1 ea NOTE XX ; Start 01/03/19 at 13:00 Glucose (Glutose) 15 gm Q15M PRN PO DECREASED GLUCOSE; Start 01/03/19 at 13:00 Glucose (Glutose) 22.5 gm Q15M PRN PO DECREASED GLUCOSE; Start 01/03/19 at 13:00 Dextrose (D50w Syringe) 25 ml Q15M PRN IV DECREASED GLUCOSE; Start 01/03/19 at 13:00 Dextrose (D50w Syringe) 50 ml Q15M PRN IV DECREASED GLUCOSE; Start 01/03/19 at 13:00 Glucagon (Glucagen) 1 mg Q15M PRN IM DECREASED GLUCOSE; Start 01/03/19 at 13:00 Glucose (Glutose) 15 gm Q15M PRN BUCCAL DECREASED GLUCOSE; Start 01/03/19 at 13:00 Famotidine (Pepcid Iv) 20 mg BID IV Last administered on 01/04/19at 08:33; Admin Dose 20 MG; Start 01/03/19 at 21:00 Hydralazine HCl (Apresoline) 10 mg Q6H PRN IV SBP>160 Last administered on 01/03/19at 17:08; Admin Dose 10 MG; Start 01/03/19 at 16:30 Piperacillin Sod/ Tazobactam Sod 100 ml @ 25 mls/hr Q6 IVPB Last administered on 01/04/19at 06:52; Admin Dose 25 MLS/HR; Start 01/03/19 at 19:30 Allergies: Coded Allergies: codeine (Verified Allergy, Unknown, 01/03/19) morphine (Verified Allergy, Unknown, DIZZINESS, NAUSEA, 01/03/19) Past Surgical History Past Surgical Hx: other (Status post right VATS) Family History Significant Family History: no pertinent family hx Social History Smoking Status: Former smoker Exam/Review of Systems Exam Vitals Vital Signs Date Temp Pulse Resp B/P (MAP) Pulse Ox O2 O2 Flow FiO2 Time Delivery Rate 01/04/19 98.5 71 18 155/74 98 Room Air 07:17 (101) 01/03/19 3.0 08:30 Intake and Output 01/03/19 01/03/19 01/04/19 1515:00 23:00 07:00 IntakeIntake Total 600 ml BalanceBalance 600 ml Constitutional: alert, oriented, well developed Head: normocephalic ENMT: nl external ears & nose Neck: supple, non-tender Respiratory: clear to auscultation, normal air movement Cardiovascular: regular rate and rhythm Gastrointestinal: soft, non-tender, other (Nondistended) Musculoskeletal: nl extremities to inspection Extremities: normal pulses Neurological: BED PLACEMENT COORDINATOR II-XII intact, nl mental status Skin: nl turgor, rash or lesions Results Result Diagram: 01/04/19 0636 01/04/19 0636 Results 24hrs Laboratory Tests Test 01/03/19 12:30 01/03/19 14:41 01/04/19 00:30 01/04/19 05:07 Urine Color STRAW Urine Clarity CLEAR Urine pH 5.0 Urine Specific 1.005 [place] Urine Ketones NEGATIVE Urine Nitrite NEGATIVE Urine Bilirubin NEGATIVE Urine Urobilinogen NEGATIVE Urine Leukocyte NEGATIVE Esterase Urine Hemoglobin NEGATIVE Urine Glucose NEGATIVE Urine Total Protein NEGATIVE Bedside Glucose 94 95 86 Test 01/04/19 06:36 01/04/19 08:29 White Blood Count 3.0 #L Red Blood Count 3.68 L Hemoglobin 10.1 L Hematocrit 31.4 L Mean Corpuscular 85.3 Volume Mean Corpuscular 27.4 L Hemoglobin Mean Corpuscular 32.2 Hemoglobin Concent Red Cell 13.7 Distribution Width Platelet Count 185 Mean Platelet Volume 9.7 Immature 0.300 Granulocytes % Neutrophils % Lymphocytes % Monocytes % Eosinophils % Basophils % Nucleated Red Blood 0.0 Cells % Immature 0.010 Granulocytes # Neutrophils # Lymphocytes # Monocytes # Eosinophils # Basophils # Nucleated Red Blood Cells # Sodium Level 144 Potassium Level 3.5 Chloride Level 114 H Carbon Dioxide Level 27 Anion Gap 3 L Blood Urea Nitrogen 12 Creatinine 0.79 Est Glomerular Filtrat Rate mL/min Glucose Level 95 # Hemoglobin A1c 6.8 H Calcium Level 9.3 Magnesium Level 1.8 Prealbumin 17.7 Triglycerides Level 127 Cholesterol Level 104 LDL Cholesterol, 28 Calculated HDL Cholesterol 51 Cholesterol/HDL 2.0 Ratio Bedside Glucose 119 Imaging Imaging Patient: VIANNEY NOLAND : 1930 Age: 88 Sex: M MR #: [id number] DOS: 01/03/19 0438 Ordering MD: DAVID KHAN MD Location: E/R Room/Bed: PROCEDURE: CT Abdomen and Pelvis without contrast. CLINICAL INDICATION: CT 03/24/2013 TECHNIQUE: CT scan of the abdomen and pelvis without contrast was performed on a multi-detector high-resolution CT scanner. The patient was scanned without IV contrast. Coronal and sagittal reformatted images were obtained from the axial source images. DICOM images are available. CTDI equals 15.35 mGy, and DLP equals 1004.6 mGy-cm. One or more of the following dose reduction techniques were used: - Automated exposure control. - Adjustment of the mA and/or kV according to patient size. - Use of iterative reconstruction technique. COMPARISON: CT lumbar spine 05/10/2018. FINDINGS: Lower thorax: Postsurgical changes of the right middle lobe and right lower lobe. Scattered atelectasis/scarring. Marked coronary artery calcifications. Heart normal in size. Liver: Scattered liver hypodensities largest in the periphery of the right liver lobe measures 2 cm. Biliary: Gallbladder is moderately distended. There is layering gallstones versus gallbladder sludge. There is mild thickening of the gallbladder wall. Findings concerning for acute cholecystitis. No biliary dilatation. Pancreas: Punctated calcifications of the pancreatic parenchyma suggestive of prior chronic pancreatitis. Spleen: Normal. Adrenal Glands: Normal. Genitourinary: Mild renal cortical atrophy. Bilateral perinephric fat stranding most likely chronic. Punctated calcifications of the right kidney likely cons istent with nonobstructive stones. No hydronephrosis. Bilateral benign-appearing renal cysts largest in the interpolar segment of left kidney measures 4.6 cm. Bladder is unremarkable. Gastrointestinal: Moderate to severely distended stomach. There is moderate narrowing of the second portion of the duodenum due to compression between distended gallbladder and pancreatic head. Slightly prominent fluid filled loops of small bowel without transitional point with stool and fluid-filled colon likely consistent with ileus. Scattered colonic diverticulosis. Lymph nodes: No adenopathy. Vascular: Normal-caliber mild to moderately calcified abdominal aorta. Peritoneum/mesentery: No ascites or free air. Reproductive organs: Moderate prostatomegaly. Musculoskeletal: Dextroscoliosis of the lumbar spine with advanced multilevel degenerative disc disease. Scattered sclerotic lesions involving vertebral bodies more prominent at the T9 and L2 vertebral bodies new compared to 05/10/2018 CT. Abdominal wall: Normal IMPRESSION: 1. Moderately distended gallbladder with diffuse gallbladder wall thickening and gallbladder sludge/stone concerning for acute cholecystitis. Consider ultrasound for confirmation. 2. Indeterminate scattered liver hypodensities largest in the right liver lobe measures 2 cm. Metastatic disease cannot be excluded. Recommend further evaluation with MRI or CT with liver protocol. 3. Nonobstructive punctated right renal stones. 4. Moderate to severely distended stomach in conjunction with slightly prominent fluid filled loops of small bowel as well as stool and fluid-filled colon likely consistent with ileus. There is moderate narrowing of the second portion of the duodenum due to compression between distended gallbladder and pancreatic head which may contributes to the distension of the stomach. 5. New scattered sclerotic lesions of the vertebral bodies when comparing to 05/10/2018 CT, concerning for metastatic disease. Further evaluation with bone scan is recommended. 6. Other findings as discussed above. Findings discussed with Dr. Chao at 08:10 a.m. on 01/03/2019. RPTAT: QQ Physician Inna Date Time Electronically viewed and signed by Physician Inna on 01/03/2019 08:13 rV/\\ Patient: VIANNEY NOLAND : 1930 Age: 88 Sex: M MR #: [id number] DOS: 01/03/19 1002 Ordering MD: SUHAS CHAO MD Location: [facility] Room/Bed: 518A PROCEDURE: Nuclear medicine hepatobiliary scan CLINICAL INDICATION: Right upper quadrant pain. Gallstones. TECHNIQUE: 7.4 mCi of technetium-99m Choletec was administered intravenously. Planar imaging of the hepatobiliary system was performed. Delayed images were obtained. Images were reviewed on the high resolution PACS workstation. COMPARISON: US ABDOMEN 01/03/2019; CT 01/03/2019 FINDINGS: Liver uptake: Normal. Biliary tree: Normal. Gallbladder visualization: None. Small bowel visualization: 10 minutes. Bile leak: None Other: None IMPRESSION: 1. Positive hepatobiliary scan. There is lack of filling of the gallbladder. Findings may represent acute cholecystitis in the appropriate clinical setting. 2. Patent common bile duct with normal visualization of the small bowel. RPTAT: HMJB .Raul Butts MD, Date Time Electronically viewed and signed by .Raul Butts MD, on 01/03/2019 18:24 .B/ CC: SUHAS CHAO MD [id number] Patient: VIANNEY NOLAND : 1930 Age: 88 Sex: M MR #: [id number] DOS: 01/03/19 0811 Ordering MD: SUHAS CHAO MD Location: E/R Room/Bed: PROCEDURE: US Abdomen. CLINICAL INDICATION: abdominal pain TECHNIQUE: Multiple real-time images were acquired of the patient's right upper quadrant abdomen and retroperitoneum utilizing a high resolution transducer. COMPARISON: 01/03/2019 FINDINGS: The liver demonstrates normal echogenicity. The liver is normal in size and no focal solid lesions are seen. The liver measures 17.8 cm in length. The portal vein is patent with normal direction of flow. No intrahepatic biliary dilatation is seen. The gallbladder is moderately distended. Multiple small gallstones are identified within the gallbladder. There is also sludge within the gallbladder. There is trace pericholecystic fluid . There is mild gallbladder wall thickening, measuring 5 mm. The common bile duct measures 4 mm in maximal dimension. The pancreas is not well seen due to overlying bowel gas. No free fluid is identified. The right kidney is normal in size, and demonstrate normal echogenicity and cortical thickness. The right kidney measures 11.9 cm in long dimension. There is no evidence of hydronephrosis. There are no kidney stones. RPTAT: AA IMPRESSION: Moderately distended gallbladder with multiple tiny stones and sludge. Mild gallbladder wall thickening and trace pericholecystic fluid. The findings may represent acute cholecystitis. .Isidoro Olivo MD, Date Time Electronically viewed and signed by .Isidoro Olivo MD, on 01/03/2019 09:19 .S/ CC: SUHAS CHAO MD Medications Medication Current Medications Sodium Chloride 1,000 ml @ 80 mls/hr [id number] IV Last administered on 01/03/19at 14:30; Admin Dose 80 MLS/HR; Start 01/03/19 at 13:00 IV Flush (NS 3 ml) 3 ml PER PROTOCOL IV ; Start 01/03/19 at 13:00 Ondansetron HCl (Zofran Inj) 4 mg Q6H PRN IV NAUSEA/VOMITING; Start 01/03/19 at 13:00 Acetaminophen (Tylenol Supp) 650 mg Q6H PRN ND .PAIN 1-3 OR TEMP Last admi nistered on 01/04/19at 08:33; Admin Dose 650 MG; Start 01/03/19 at 13:00 Morphine Sulfate (morphine) 2 mg Q4H PRN IV .SEVERE PAIN 7-10; Start 01/03/19 at 13:00 Bisacodyl (Dulcolax Supp) 10 mg DAILY PRN ND .CONSTIPATION; Start 01/03/19 at 13:00 Insulin Glargine (Lantus) 11 units DAILY@2000 SC Last administered on 01/03/19at 20:12; Admin Dose 11 UNITS; Start 01/03/19 at 20:00 Insulin Aspart (Novolog Insulin Pen) NOVOLOG *MILD* ALGORI... Q4 SC ; Start 01/03/19 at 13:00 Miscellaneous Information 1 ea NOTE XX ; Start 01/03/19 at 13:00 Glucose (Glutose) 15 gm Q15M PRN PO DECREASED GLUCOSE; Start 01/03/19 at 13:00 Glucose (Glutose) 22.5 gm Q15M PRN PO DECREASED GLUCOSE; Start 01/03/19 at 13:00 Dextrose (D50w Syringe) 25 ml Q15M PRN IV DECREASED GLUCOSE; Start 01/03/19 at 13:00 Dextrose (D50w Syringe) 50 ml Q15M PRN IV DECREASED GLUCOSE; Start 01/03/19 at 13:00 Glucagon (Glucagen) 1 mg Q15M PRN IM DECREASED GLUCOSE; Start 01/03/19 at 13:00 Glucose (Glutose) 15 gm Q15M PRN BUCCAL DECREASED GLUCOSE; Start 01/03/19 at 13:00 Famotidine (Pepcid Iv) 20 mg BID IV Last administered on 01/04/19at 08:33; Admin Dose 20 MG; Start 01/03/19 at 21:00 Hydralazine HCl (Apresoline) 10 mg Q6H PRN IV SBP>160 Last administered on 01/03/19at 17:08; Admin Dose 10 MG; Start 01/03/19 at 16:30 Piperacillin Sod/ Tazobactam Sod 100 ml @ 25 mls/hr Q6 IVPB Last administered on 01/04/19at 06:52; Admin Dose 25 MLS/HR; Start 01/03/19 at 19:30 GIANFRANCO DAVID MD Jan 04, 2019 08:52
--- NOTE | 2019-01-04 11:26 | PN ---
Date/Time of Note Date/Time of Note DATE: 01/04/19 TIME: 11:10 Assessment/Plan VTE Prophylaxis Risk score (from Ns)>0 risk: 5 SCD applied (from Ns): Yes Pharmacological prophylaxis: NA/contraindicated Pharm contraindication: low risk/ambulating Lines/C[facility]ters [facility] Urinary Cath still in place: No Assessment/Plan Hospital Course SUBJECTIVE: Patient with significant improvement in his abdominal pain. He is now on a clear diet which he is tolerating. Had bowel movement. OBJECTIVE: Vital signs-see below PHYSICAL EXAM: Constitutional: Elderly male,,not in acute distress. HEENT: Head atraumatic and normocephalic. Eyes: Extraocular muscles intact. Anicteric sclerae. Pupils equal bilaterally, reactive to light. NECK: Supple without lymph node. CHEST: Clear and good breath sounds equally. No wheezing. No rhonchi. HEART: S1, S2. Regular rate and rhythm. ABDOMEN: Soft/non tender with no rebound tenderness. Bowel sounds were present. EXTREMITIES: No cyanosis, clubbing or edema. NEUROLOGIC: Alert and oriented x3. No focal deficit. No sensory deficit. PSYCHOSOCIAL: No signs of depression. INTEGUMENTARY: No open wounds. ASSESSMENT AND PLAN:88 yo M w/SCC undergoing chemotherapy, DM2,hlp,bph,constipation here w/abd pain,dry heaves after eating egg salad for lunch yesterday,found to have serve gastric distention w/ Ileus.. Ileus -Clinically resolving. Started on clear diet. -Status post NGT decompression. Follow-up repeat abdominal x-ray. Cholelithiasis -Appreciate surgical follow-up, no emergent indication for cholecystectomy. -Continue medical management with antimicrobial for possible cholecystitis. Small cell carcinoma, undergoing chemotherapy -Last chemo was December 29 and patient's oncologist is Dr. Morton. Next onco f/u scheduled for January 15 Neutropenia, likely from chemotherapy -With improved WBC. Anemia of chronic illness -Stable H&H DMII -A1c. Basal/bolus insulin Hyperlipidemia -Resume statin BPH -Resume home medications Myasthenia gravis -Resume home medication Debility -Overall, patient with back surgeries, myasthenia gravis and he uses [facility] at home and is not requesting any placement assistance. -PT eval Constipation -stable DVT prophylaxis: SCDs PUD prophylaxis: PPI Disposition: Continue current management. Likely DC in a.m., if tolerating diet. Patient was seen in collaboration with Dr. Logan. Result Diagram: 01/04/19 0636 01/04/19 0636 Results 24hrs Laboratory Tests Test 01/03/19 12:30 01/03/19 14:41 01/04/19 00:30 01/04/19 05:07 Urine Color STRAW Urine Clarity CLEAR Urine pH 5.0 Urine Specific 1.005 [place] Urine Ketones NEGATIVE Urine Nitrite NEGATIVE Urine Bilirubin NEGATIVE Urine Urobilinogen NEGATIVE Urine Leukocyte NEGATIVE Esterase Urine Hemoglobin NEGATIVE Urine Glucose NEGATIVE Urine Total Protein NEGATIVE Bedside Glucose 94 95 86 Test 01/04/19 06:36 01/04/19 08:29 White Blood Count 3.0 #L Red Blood Count 3.68 L Hemoglobin 10.1 L Hematocrit 31.4 L Mean Corpuscular 85.3 Volume Mean Corpuscular 27.4 L Hemoglobin Mean Corpuscular 32.2 Hemoglobin Concent Red Cell 13.7 Distribution Width Platelet Count 185 Mean Platelet Volume 9.7 Immature 0.300 Granulocytes % Neutrophils % Segmented 21 L Neutrophils % (Manual) Lymphocytes % Lymphocytes % 54 H (Manual) Reactive Lymphocytes 2 H % (Manual) Monocytes % Monocytes % (Manual) 17 H Eosinophils % Eosinophils % 4 (Manual) Basophils % Basophils % (Manual) 2 Nucleated Red Blood 0.0 Cells % Immature 0.010 Granulocytes # Neutrophils # Lymphocytes (Manual) 1.6 Lymphocytes # Reactive Lymphocytes 0.0 # Monocytes # Monocytes # (Manual) 0.5 Eosinophils # Basophils # Basophils # (Manual) 0.0 Nucleated Red Blood Cells # Platelet Estimate NORMAL Giant Platelets 1 H Polychromasia 1+ Anisocytosis 1+ Sodium Level 144 Potassium Level 3.5 Chloride Level 114 H Carbon Dioxide Level 27 Anion Gap 3 L Blood Urea Nitrogen 12 Creatinine 0.79 Est Glomerular Filtrat Rate mL/min Glucose Level 95 # Hemoglobin A1c 6.8 H Calcium Level 9.3 Magnesium Level 1.8 Prealbumin 17.7 Triglycerides Level 127 Cholesterol Level 104 LDL Cholesterol, 28 Calculated HDL Cholesterol 51 Cholesterol/HDL 2.0 Ratio Bedside Glucose 119 Exam/Review of Systems Exam Vitals Vital Signs Date Temp Pulse Resp B/P (MAP) Pulse Ox O2 O2 Flow FiO2 Time Delivery Rate 01/04/19 98.5 71 18 155/74 98 Room Air 07:17 (101) 01/03/19 3.0 08:30 Intake and Output 01/03/19 01/03/19 01/04/19 1515:00 23:00 07:00 IntakeIntake Total 600 ml BalanceBalance 600 ml Results Results 24hrs Laboratory Tests Test 01/03/19 12:30 01/03/19 14:41 01/04/19 00:30 01/04/19 05:07 Urine Color STRAW Urine Clarity CLEAR Urine pH 5.0 Urine Specific 1.005 [place] Urine Ketones NEGATIVE Urine Nitrite NEGATIVE Urine Bilirubin NEGATIVE Urine Urobilinogen NEGATIVE Urine Leukocyte NEGATIVE Esterase Urine Hemoglobin NEGATIVE Urine Glucose NEGATIVE Urine Total Protein NEGATIVE Bedside Glucose 94 95 86 Test 01/04/19 06:36 01/04/19 08:29 White Blood Count 3.0 #L Red Blood Count 3.68 L Hemoglobin 10.1 L Hematocrit 31.4 L Mean Corpuscular 85.3 Volume Mean Corpuscular 27.4 L Hemoglobin Mean Corpuscular 32.2 Hemoglobin Concent Red Cell 13.7 Distribution Width Platelet Count 185 Mean Platelet Volume 9.7 Immature 0.300 Granulocytes % Neutrophils % Segmented 21 L Neutrophils % (Manual) Lymphocytes % Lymphocytes % 54 H (Manual) Reactive Lymphocytes 2 H % (Manual) Monocytes % Monocytes % (Manual) 17 H Eosinophils % Eosinophils % 4 (Manual) Basophils % Basophils % (Manual) 2 Nucleated Red Blood 0.0 Cells % Immature 0.010 Granulocytes # Neutrophils # Lymphocytes (Manual) 1.6 Lymphocytes # Reactive Lymphocytes 0.0 # Monocytes # Monocytes # (Manual) 0.5 Eosinophils # Basophils # Basophils # (Manual) 0.0 Nucleated Red Blood Cells # Platelet Estimate NORMAL Giant Platelets 1 H Polychromasia 1+ Anisocytosis 1+ Sodium Level 144 Potassium Level 3.5 Chloride Level 114 H Carbon Dioxide Level 27 Anion Gap 3 L Blood Urea Nitrogen 12 Creatinine 0.79 Est Glomerular Filtrat Rate mL/min Glucose Level 95 # Hemoglobin A1c 6.8 H Calcium Level 9.3 Magnesium Level 1.8 Prealbumin 17.7 Triglycerides Level 127 Cholesterol Level 104 LDL Cholesterol, 28 Calculated HDL Cholesterol 51 Cholesterol/HDL 2.0 Ratio Bedside Glucose 119 Medications Medication Current Medications Sodium Chloride 1,000 ml @ 80 mls/hr [id number] IV Last administered on 01/04/19at 10:28; Admin Dose 80 MLS/HR; Start 01/03/19 at 13:00 IV Flush (NS 3 ml) 3 ml PER PROTOCOL IV ; Start 01/03/19 at 13:00 Ondansetron HCl (Zofran Inj) 4 mg Q6H PRN IV NAUSEA/VOMITING; Start 01/03/19 at 13:00 Acetaminophen (Tylenol Supp) 650 mg Q6H PRN AR .PAIN 1-3 OR TEMP Last administered on 01/04/19at 08:33; Admin Dose 650 MG; Start 01/03/19 at 13:00 Morphine Sulfate (morphine) 2 mg Q4H PRN IV .SEVERE PAIN 7-10; Start 01/03/19 at 13:00 Bisacodyl (Dulcolax Supp) 10 mg DAILY PRN AR .CONSTIPATION; Start 01/03/19 at 13:00 Insulin Glargine (Lantus) 11 units DAILY@2000 SC Last administered on 01/03/19at 20:12; Admin Dose 11 UNITS; Start 01/03/19 at 20:00 Insulin Aspart (Novolog Insulin Pen) NOVOLOG *MILD* ALGORI... Q4 SC ; Start 01/03/19 at 13:00 Miscellaneous Information 1 ea NOTE XX ; Start 01/03/19 at 13:00 Glucose (Glutose) 15 gm Q15M PRN PO DECREASED GLUCOSE; Start 01/03/19 at 13:00 Glucose (Glutose) 22.5 gm Q15M PRN PO DECREASED GLUCOSE; Start 01/03/19 at 13:00 Dextrose (D50w Syringe) 25 ml Q15M PRN IV DECREASED GLUCOSE; Start 01/03/19 at 13:00 Dextrose (D50w Syringe) 50 ml Q15M PRN IV DECREASED GLUCOSE; Start 01/03/19 at 13:00 Glucagon (Glucagen) 1 mg Q15M PRN IM DECREASED GLUCOSE; Start 01/03/19 at 13:00 Glucose (Glutose) 15 gm Q15M PRN BUCCAL DECREASED GLUCOSE; Start 01/03/19 at 13:00 Famotidine (Pepcid Iv) 20 mg BID IV Last administered on 01/04/19at 08:33; Admin Dose 20 MG; Start 01/03/19 at 21:00 Hydralazine HCl (Apresoline) 10 mg Q6H PRN IV SBP>160 Last administered on 01/03/19at 17:08; Admin Dose 10 MG; Start 01/03/19 at 16:30 Piperacillin Sod/ Tazobactam Sod 100 ml @ 25 mls/hr Q6 IVPB Last administered on 01/04/19at 06:52; Admin Dose 25 MLS/HR; Start 01/03/19 at 19:30 STAN VANEGAS NP Jan 04, 2019 11:26
[2019-01-04] MEDS ORDERED: ATORVASTATIN 20 MG TAB PO SCH (21:00)
[2019-01-04] MEDS ORDERED: PYRIDOSTIGMINE 60 MG TAB PO SCH (21:00)
[2019-01-04] MEDS: INSULIN GLARGINE [LANTus] (100 UNITS/ML) SYG SC SCH (21:31)
[2019-01-04] MEDS ORDERED: TAMSULOSIN (SR) 0.4 MG CAP PO SCH (23:00)
[2019-01-05] VITALS: BP 169/79; PULSE 78; RESP 18
[2019-01-05 00:30] VITALS: BP 152/78; PULSE 78; RESP 20
[2019-01-05] MEDS: SOD CHLORIDE 0.9% 1,000 ML IV SCH ×2 (02:30→04:50)
[2019-01-05 04:00] VITALS: BP 155/73; PULSE 65; RESP 18
[2019-01-05] MEDS: PIPER-TAZO 3.375 GM IV (PMX) 100 ML IVPB SCH ×2 (06:51→12:00)
[2019-01-05] MEDS ORDERED: LEVOTHYROXINE 100 MCG TAB PO SCH (07:00)
[2019-01-05 07:22] VITALS: BP 146/69; PULSE 58; RESP 17
[2019-01-05] MEDS: INSULIN ASPART [NOVOLOG] 3 ML PEN SC SCH ×2 (07:55→11:50)
[2019-01-05] MEDS: FAMOTIDINE 20 MG INJ IV SCH (08:15)
[2019-01-05] MEDS ORDERED: FOLIC ACID 1 MG TAB PO SCH (09:00)
--- NOTE | 2019-01-05 11:25 | PDOCDIS ---
Discharge Instructions CONDITION [id number] Patient Condition: [id number] Stable HOME CARE INSTRUCTIONS: [id number] Diet Instructions: [id number] Regular FOLLOW UP/APPOINTMENTS Follow-up Plan Follow-up with Primary care physician, oncologist in 1 week If your abdominal pain comes back, having nausea, vomiting, diarrhea, fevers, chills, please come back to the emergency room. Please take medications as prescribed. STAN VANEGAS NP Jan 05, 2019 11:25
[2019-01-05] MEDS ORDERED: METR-122 PO (11:26)
[2019-01-05] MEDS ORDERED: CIPR500T4 PO (11:26)
[2019-01-05 11:31] VITALS: BP 160/72; PULSE 66; RESP 19
--- NOTE | 2019-01-05 11:32 | DS ---
Date/Time of Note Date/Time of Note DATE: 01/05/19 TIME: 11:29 Discharge Summary Admission/Discharge Info Admit Date/Time Jan 03, 2019 at 10:34 Discharge Date/Time Discharge Diagnosis Ileus.resolved Cholelithiasis w/possible mild cholecystitis Small cell carcinoma, undergoing chemotherapy Neutropenia, likely from chemotherapy.stable Anemia of chronic illness DMII Hyperlipidemia BPH Myasthenia gravis Debility Constipation Patient Condition: Stable Consults /Paty Procedures 01/03/2019: HIDA scan IMPRESSION: 1. Positive hepatobiliary scan. There is lack of filling of the gallbladder. Findings may represent acute cholecystitis in the appropriate clinical setting. 2. Patent common bile duct with normal visualization of the small bowel. Hx of Present Illness This is a 88-year-old male with a history of small cell carcinoma diagnosed in November 2018 on chemotherapy with right Port-A-Cath placed, dyslipidemia, hypothyroidism, diabetes, BPH, myasthenia gravis, former smoker, back surgery L4-L5, appendectomy, kidney stone removal, lung nodule resection, colonoscopy 15 years ago, was brought into the emergency room with sudden onset of generalized abdominal pain with dry heaves after patient had egg salad for lunch yesterday. Patient also found epigastric burning sensation. Patient's last chemo was on December 29. He denied any chest pain, palpitation, fevers, chills, nausea, vomiting, dysuria, hematuria, diarrhea, numbness, tingling, dizziness, headache, loss of consciousness, or other constitutional symptoms. Patient felt like his been constipated lately. In the emergency room, patient was noted with a white count of 1600, hemoglobin 9.4, hematocrit 29.2, potassium 3.3, alkaline phosphatase 140, lipase 342. Patient's initial CT abdomen and pelvis showed gallstones with possible cholecystitis. There is also diffuse gastric distention with fluid-filled loops of small bowel, consistent with ileus. No fevers. Patient had blood pressure 183/81 on arrival. NG tube was inserted in the emergency room which was draining undigested food materials. Hospital Course This is a 88-year-old male with history of small cell carcinoma, undergoing chemotherapy, diabetes, hyperlipidemia, BPH, constipation, admitted with abdominal pain, dry heaves after eating eggs salad for lunch, found to have severe gastric distention with ileus. Patient's initial imaging including ultrasound abdomen, CT, and a HIDA scan was also suggestive of acute cholecystitis. But patient with no right upper quadrant abdominal pain, no nausea, vomiting, diarrhea, and a negative Jiang sign. Patient was evaluated by surgeon. He was also noted with multiple gallstones. There was no emergent indication for cholecystectomy. Patient was recommended to have medical management for underlying ileus. He was kept on bowel rest, given IV fluids and pain medications. Patient had clinical and radiographic evidence of resolution of ileus. Patient was then started on a diet which he was able to tolerate and advance to regular. Patient did not have any further abdominal pain or other GI symptoms. He was continued on home medication for underlying comorbidities. At this time, patient is very eager to be discharged home. He is feeling back to his baseline. His labs and vital signs stable. Patient is stable for outpatient follow-up. He was recommended to follow-up with his primary care physician and oncologist on discharge. He was also given Cipro and Flagyl for 7 more days to complete a course of medical management of possible cholecystitis. Approximately 60 m spent on coordinating the discharge on this patient. Patient was seen in collaboration with Dr. Logan. Home Meds Active Scripts Metronidazole* (Metronidazole*) 500 Mg Tablet, 500 MG PO Q8 for 7 Days, #21 TAB Prov:STAN VANEGAS [employer] 01/05/19 Ciprofloxacin Hcl* (Ciprofloxacin Hcl*) 500 Mg Tablet, 500 MG PO BID, #14 TAB Prov:STAN VANEGAS [employer] 01/05/19 Reported Medications Lutein/Zeaxanthin ([employer] LUTEIN 40 MG SOFTGEL) 1 Each Capsule, 1 EACH PO DAILY, CAP 01/03/19 C,E,Zinc,Copper 11/Ffvse7r/Lut (Ocuvite Adult 50 Plus Softgel) 1 Each Capsule, 1 EACH PO DAILY, CAP 01/03/19 Silodosin (Rapaflo) 8 Mg Capsule, 8 MG PO HS, CAP 01/03/19 Pyridostigmine [place]* (Pyridostigmine [place]*) 60 Mg Tablet, 120 MG PO 2X daily & bedtime, TAB 01/03/19 Levothyroxine Sodium* (Levoxyl*) 100 Mcg Tablet, 100 MCG PO BEFORE BREAKFAST, #30 TAB 01/03/19 Allopurinol* (Allopurinol*) 100 Mg Tablet, 100 MG PO DAILY, TAB 01/03/19 Metformin Hcl* (Metformin Hcl*) 1,000 Mg Tablet, 1000 MG PO WITH BREAKFAST DINNE, #60 TAB 01/03/19 Atorvastatin Calcium* (Atorvastatin Calcium*) 20 Mg Tablet, 20 MG PO QHS, #30 TAB 01/03/19 Glipizide* (Glipizide*) 10 Mg Tablet, 20 MG PO BID, TAB 01/03/19 Folic Acid* (Folic Acid*) 1 Mg Tablet, 1 MG PO DAILY, TAB 01/03/19 Discontinued Reported Medications Amoxicillin/Potassium Clav (Amox-Clav 875-125 mg Tablet) 875-125 mg Tab, 1 TAB PO BID, #20 TAB filled 12-23-18 for 10 days 01/03/19 Pyridostigmine [place]* (Mestinon*) 60 Mg Tablet, 120 MG PO BEFORE LUNCH, TAB 10/01/16 Pyridostigmine [place]* (Pyridostigmine [place]*) 60 Mg Tablet, 60 MG PO QHS, TAB 10/01/16 Pyridostigmine [place]* (Pyridostigmine [place]*) 60 Mg Tablet, 120 MG PO BEFORE LUNCH, TAB 10/01/16 Beta-Carotene (Beta Carotene) 25,000 Unit Capsule, 90521 UNIT PO DAILY, CAP 10/01/16 Atorvastatin* (Atorvastatin*) 40 Mg Tablet, 20 MG PO DAILY, #30 TAB 10/01/16 Vit C/E/Zn/Coppr/Lutein/Zeaxan (Preservision Areds 2 Softgel) 1 Each Capsule, 1 EACH PO BID, CAP 10/01/16 Lutein-Zeaxanthin (Lutein-Zeaxanthin) 25-5 Mg Softgel Capsule, 1 CAP PO DAILY, CAP 09/30/16 Atorvastatin Calcium* (Atorvastatin Calcium*) 20 Mg Tablet, 20 MG PO QHS, #30 TAB 09/30/16 Tamsulosin Hcl* (Tamsulosin Hcl*) 0.4 Mg Cap.er.24h, 0.4 MG PO HS, CAP 09/30/16 Levothyroxine Sodium* (Levothyroxine Sodium*) 100 Mcg Tablet, 100 MCG PO BEFORE BREAKFAST, #30 TAB 09/30/16 Allopurinol* (Allopurinol*) 100 Mg Tablet, 100 MG PO DAILY 01/03/12 Glipizide* (Glipizide*) 10 Mg Tablet, 10 MG PO BID 01/03/12 Metformin Hcl* (Metformin Hcl*) 1,000 Mg Tablet, 1000 MG PO BID 01/03/12 Discontinued Scripts Ciprofloxacin Hcl* (Ciprofloxacin Hcl*) 500 Mg Tablet, 500 MG PO BID for 7 Days, TAB Prov:OPAL MCKEON MD 05/10/18 Polyethylene Glycol* (Miralax*) 17 Gm Powd.pack, 17 GM PO DAILY, #7 Prov:OPAL MCKEON MD 05/10/18 Hydrocodone/Acetaminophen ([place] 5-325 Tablet) 1 Each Tablet, 1 TAB PO Q6H PRN for PAIN, #7 TAB Prov:OPAL MCKEON MD 05/10/18 Follow-up Plan Follow-up with Primary care physician, oncologist in 1 week If your abdominal pain comes back, having nausea, vomiting, diarrhea, fevers, chills, please come back to the emergency room. Please take medications as pr escribed. Primary Care Provider Not On Staff Doctor Pending Labs Laboratory Tests Test 01/04/19 12:01 01/04/19 17:22 01/04/19 21:15 01/05/19 08:14 Bedside 129 184 256 82 Glucose mg/dL (70-220) mg/dL (70-220) mg/dL (70-220) mg/dL (70-220) STAN VANEGAS NP Jan 05, 2019 11:32
== END 2019-01-05 13:01 | disposition home or self-care (01) | DRG 389 ==
LOC: E/R 04:18 → TEL 10:34
PROVIDERS: ADMIT Internal Medicine; ATTEND Internal Medicine
DX: K56.7 Ileus, unspecified (principal); C34.91 Malignant neoplasm of unspecified part of right bronchus or lung; C79.51 Secondary malignant neoplasm of bone; K80.10 Calculus of gallbladder with chronic cholecystitis without obstruction; G70.00 Myasthenia gravis without (acute) exacerbation; D70.1 Agranulocytosis secondary to cancer chemotherapy; D63.8 Anemia in other chronic diseases classified elsewhere; E11.9 Type 2 diabetes mellitus without complications; N40.0 Benign prostatic hyperplasia without lower urinary tract symptoms; K21.9 Gastro-esophageal reflux disease without esophagitis; M1A.9XX0 Chronic gout, unspecified, without tophus (tophi); E03.9 Hypothyroidism, unspecified; K59.00 Constipation, unspecified; Z79.4 Long term (current) use of insulin; Z98.1 Arthrodesis status; Z87.891 Personal history of nicotine dependence
CPT/HCPCS: 36415; 71045; 74018; 74176; 76705; 78226; 80048; 80053; 80061; 81003; 82962; 83036; 83690; 83735; 84134; 84484; 85025; 87086; 93005; 96374; 96375; 96376; 97161; A9537; J0360; J1815; J2270; J2405; J2543; J2765; J7030